=== PATIENT | female | born 1945 | race Caucasian/White ===

== ENCOUNTER 2019-06-17 12:36 | Inpatient (IN) ==
[2019-06-17 13:45] LABS: Bilirubin,Urine Negative (Negative); Blood,Urine Negative (Negative); Color,Urine Yellow (Yellow); Glucose,Urine (UA) Normal (Normal); Ketones,Urine Negative (Negative); Leukocyte Esterase,Urine Moderate (Negative); Nitrite,Urine Negative (Negative); Protein,Urine 30 mg/dL (Neg-Trace); Urobilinogen,Urine Normal (Normal)
[2019-06-17 13:47] LABS: Basophils % 0.6 %; Eosinophils # 0.2 K/mcL (0.0-0.6); Eosinophils % 3.6 %; Hematocrit 30.1 % (35.3-44.9); Immature Granulocytes % 0.8 % (0-4); Lymphocytes # 0.7 K/mcL (0.6-4.6); Mean Corpuscular HGB Conc 29.9 g/dL (31.6-35.5); Mean Corpuscular Hemoglobin 31.6 pg (28.0-33.3); Mean Corpuscular Volume 105.6 fL (83.0-100.0); Mean Platelet Volume 11.5 fL (9.4-12.4); Monocytes # 0.5 K/mcL (0.0-1.3); Monocytes % 10.1 %; Neutrophils # 3.5 K/mcL (1.6-8.9); Platelet Count 113 K/mcL (140-400); Red Blood Count 2.85 M/mcL (3.82-4.97); Red Cell Distribution Width 16.6 % (11.5-14.5); Segmented Neutrophils % 69.9 %; White Blood Count 4.9 K/mcL (4.3-11.1)
[2019-06-17 13:48] LABS: Bacteria,Urine Few per hpf (None-Few); Hyaline Casts,Urine None Seen per lpf (None-Few); Squamous Epithelial Cell,Urine Many per lpf (None-Few)
[2019-06-17 13:50] LABS: INR 1.1; Prothrombin Time 12.9 Seconds (9.4-12.1)
[2019-06-17 14:05] LABS: Alanine Aminotransferase 33 Units/L (7-52); Albumin 3.9 g/dL (3.5-5.7); Albumin/Globulin Ratio 1.4 (1.1-2.2); Alkaline Phosphatase 71 Units/L (34-104); Aspartate Amino Transferase 70 Units/L (13-39); BUN/Creatinine Ratio 22 (6-26); Bilirubin,Direct 0.3 mg/dL (0.0-0.2); Bilirubin,Indirect 0.4 mg/dL (0.0-1.2); Bilirubin,Total 0.7 mg/dL (0.3-1.0); Blood Urea Nitrogen 47 mg/dL (8-23); Calcium 8.9 mg/dL (8.6-10.3); Carbon Dioxide 24 mEq/L (23-29); Chloride 112 mEq/L (98-107); Globulin 2.7 g/dL (2.4-3.5); Glucose 86 mg/dL (70-105); Osmolality,Calculated 302 (280-300); Potassium 5.1 mEq/L (3.5-5.1); Sodium 140 mEq/L (136-145); Total Protein 6.6 g/dL (6.4-8.9); Troponin I < 0.03 ng/mL (< 0.04); eGFR For African Americans 28 (> 60); eGFR For Non-African Americans 23 (> 60)
[2019-06-17 14:13] LABS: Clarity,Urine Hazy (Clear)
[2019-06-17] MEDS ORDERED: cefTRIAXone 1,000 MG in Water for inj. (sterile) 10 ML IVP ONE (14:48)
[2019-06-17] MEDS ORDERED: *HR* FentaNYL (PF) 100 MCG/2 ML VIAL IVP ONE (15:19)
[2019-06-17] MEDS ORDERED: Naloxone 0.4 MG/ML INJ IVP PRN (16:36)
[2019-06-17 17:52] LABS: Basophils % 0.5 %; Eosinophils # 0.2 K/mcL (0.0-0.6); Eosinophils % 4.5 %; Hematocrit 27.7 % (35.3-44.9); Hemoglobin 8.3 g/dL (11.5-15.4); Immature Granulocytes % 0.2 % (0-4); Lymphocytes # 0.7 K/mcL (0.6-4.6); Lymphocytes % 18.2 %; Mean Corpuscular Hemoglobin 31.3 pg (28.0-33.3); Mean Corpuscular Volume 104.5 fL (83.0-100.0); Mean Platelet Volume 11.6 fL (9.4-12.4); Monocytes # 0.4 K/mcL (0.0-1.3); Monocytes % 10.7 %; Neutrophils # 2.7 K/mcL (1.6-8.9); Platelet Count 104 K/mcL (140-400); Red Blood Count 2.65 M/mcL (3.82-4.97); Red Cell Distribution Width 16.7 % (11.5-14.5); Segmented Neutrophils % 65.9 %
[2019-06-17] MEDS ORDERED: Furosemide 40 MG TABLET PO ONE (18:13)
[2019-06-18] MEDS ORDERED: Acetaminophen 325 MG TABLET PO PRN (01:45)
[2019-06-18 03:41] LABS: Calcium 8.6 mg/dL (8.6-10.3); Potassium 5.2 mEq/L (3.5-5.1)
[2019-06-18 03:54] LABS: Thyroid Stimulating Hormone 2.029 mcIU/mL (0.340-5.600)
[2019-06-18 04:04] LABS: Folate 9.7 ng/mL (3.0-16.0)
[2019-06-18] MEDS: *HR* Heparin 5,000 UNIT/ML VIAL SQ SCH ×2 (06:07→17:58)
[2019-06-18] MEDS ORDERED: Cyanocobalamin (B-12) 1,000 MCG/ML VIAL SQ ONE (07:17)
[2019-06-18] MEDS ORDERED: Perflutren Lipid Microsphere 1.3 ML in 0.9 % Sodium Chloride 8.7 ML IVP ONE (07:22)
[2019-06-18 07:32] LABS: Magnesium 2.1 mg/dL (1.6-2.6)
[2019-06-18] MEDS ORDERED: Furosemide 40 MG/4 ML VIAL IVP SCH (09:00)
[2019-06-18] MEDS: Aspirin Enteric Coated 81 MG Tablet PO SCH (10:35)
[2019-06-18] MEDS: Cyanocobalamin (B-12) 1,000 MCG TABLET PO SCH (10:35)
[2019-06-18] MEDS: cefTRIAXone 1,000 MG in Water for inj. (sterile) 10 ML IVP SCH (10:42)
[2019-06-18] MEDS: *HR* OxyCODONE/APAP 10/325 TABLET PO PRN (14:59)
[2019-06-18] MEDS: Melatonin 3 MG TABLET PO SCH (22:03)
[2019-06-19 02:01] LABS: Calcium 8.7 mg/dL (8.6-10.3); Potassium 4.4 mEq/L (3.5-5.1)
[2019-06-19] MEDS: *HR* Heparin 5,000 UNIT/ML VIAL SQ SCH ×2 (06:10→16:31)
[2019-06-19] MEDS: Aspirin Enteric Coated 81 MG Tablet PO SCH (08:37)
[2019-06-19] MEDS: Cyanocobalamin (B-12) 1,000 MCG TABLET PO SCH (08:37)
[2019-06-19] MEDS: cefTRIAXone 1,000 MG in Water for inj. (sterile) 10 ML IVP SCH (08:37)
[2019-06-19] MEDS: Furosemide 40 MG/4 ML VIAL IVP SCH ×2 (08:37→16:27)
[2019-06-19] MEDS: *HR* OxyCODONE/APAP 10/325 TABLET PO PRN ×3 (08:45→20:37)
[2019-06-19] MEDS: Melatonin 3 MG TABLET PO SCH (20:34)
[2019-06-20 03:53] LABS: Mean Corpuscular Volume 100.4 fL (83.0-100.0); Red Cell Distribution Width 16.5 % (11.5-14.5)
[2019-06-20 03:55] LABS: Hematocrit 26.1 % (35.3-44.9); Hemoglobin 8.1 g/dL (11.5-15.4); Immature Platelets 3.2 % (1.1-6.1); Mean Corpuscular Hemoglobin 31.2 pg (28.0-33.3); Mean Platelet Volume 11.5 fL (9.4-12.4); Red Blood Count 2.6 M/mcL (3.82-4.97)
[2019-06-20 04:06] LABS: Calcium 8.9 mg/dL (8.6-10.3); Potassium 4.8 mEq/L (3.5-5.1)
[2019-06-20] MEDS: *HR* Heparin 5,000 UNIT/ML VIAL SQ SCH ×2 (06:07→16:58)
[2019-06-20] MEDS ORDERED: Acetaminophen 325 MG TABLET PO PRN (07:41)
[2019-06-20] MEDS: cefTRIAXone 1,000 MG in Water for inj. (sterile) 10 ML IVP SCH (08:04)
[2019-06-20] MEDS: Cyanocobalamin (B-12) 1,000 MCG TABLET PO SCH (08:05)
[2019-06-20] MEDS: Aspirin Enteric Coated 81 MG Tablet PO SCH (08:05)
[2019-06-20] MEDS: *HR* OxyCODONE/APAP 10/325 TABLET PO PRN ×2 (08:08→19:30)
[2019-06-20] MEDS: Melatonin 3 MG TABLET PO SCH (20:38)
[2019-06-21 02:56] LABS: Red Cell Distribution Width 16.2 % (11.5-14.5)
[2019-06-21 02:58] LABS: Basophils % 0.6 %; Eosinophils # 0.2 K/mcL (0.0-0.6); Eosinophils % 4.2 %; Hematocrit 26.4 % (35.3-44.9); Hemoglobin 8.3 g/dL (11.5-15.4); Immature Granulocytes % 0.3 % (0-4); Immature Platelets 4.1 % (1.1-6.1); Lymphocytes # 0.7 K/mcL (0.6-4.6); Lymphocytes % 20.6 %; Mean Corpuscular HGB Conc 31.4 g/dL (31.6-35.5); Mean Corpuscular Hemoglobin 31.6 pg (28.0-33.3); Mean Corpuscular Volume 100.4 fL (83.0-100.0); Mean Platelet Volume 11.5 fL (9.4-12.4); Monocytes # 0.4 K/mcL (0.0-1.3); Monocytes % 9.9 %; Neutrophils # 2.3 K/mcL (1.6-8.9); Red Blood Count 2.63 M/mcL (3.82-4.97); Segmented Neutrophils % 64.4 %; White Blood Count 3.5 K/mcL (4.3-11.1)
[2019-06-21 03:00] LABS: Calcium 9.2 mg/dL (8.6-10.3); Potassium 5.1 mEq/L (3.5-5.1)
[2019-06-21 03:04] LABS: Platelet Count 91 K/mcL (140-400)
[2019-06-21] MEDS: *HR* Heparin 5,000 UNIT/ML VIAL SQ SCH ×2 (05:40→16:48)
[2019-06-21] MEDS: Aspirin Enteric Coated 81 MG Tablet PO SCH (08:09)
[2019-06-21] MEDS: Cyanocobalamin (B-12) 1,000 MCG TABLET PO SCH (08:09)
[2019-06-21] MEDS ORDERED: Furosemide 40 MG/4 ML VIAL IVP ONE (13:44)
[2019-06-21] MEDS: *HR* OxyCODONE/APAP 10/325 TABLET PO PRN ×2 (14:06→20:37)
[2019-06-21] MEDS: Melatonin 3 MG TABLET PO SCH (20:38)
[2019-06-21 21:29] LABS: Protein/Creatinine Ratio,Urine 0.2 mg/mg (0.00-0.20)
[2019-06-21 21:33] LABS: Bilirubin,Urine Negative (Negative); Blood,Urine Negative (Negative); Clarity,Urine Clear (Clear); Color,Urine Yellow (Yellow); Glucose,Urine (UA) Normal (Normal); Ketones,Urine Negative (Negative); Leukocyte Esterase,Urine Negative (Negative); Nitrite,Urine Negative (Negative); Protein,Urine Trace mg/dL (Neg-Trace); Specific Gravity,Urine 1.019 (1.010-1.025); Urobilinogen,Urine Normal (Normal)
[2019-06-22 05:04] LABS: Immature Granulocytes % 0.3 % (0-4); Mean Corpuscular Volume 99.6 fL (83.0-100.0)
[2019-06-22 05:06] LABS: Basophils % 0.3 %; Eosinophils # 0.1 K/mcL (0.0-0.6); Eosinophils % 4.9 %; Hematocrit 25.6 % (35.3-44.9); Immature Platelets 2.9 % (1.1-6.1); Mean Corpuscular HGB Conc 31.3 g/dL (31.6-35.5); Mean Corpuscular Hemoglobin 31.1 pg (28.0-33.3); Monocytes # 0.3 K/mcL (0.0-1.3); Monocytes % 8.7 %; Neutrophils # 1.5 K/mcL (1.6-8.9); Red Blood Count 2.57 M/mcL (3.82-4.97); Segmented Neutrophils % 52.8 %; White Blood Count 2.9 K/mcL (4.3-11.1)
[2019-06-22 05:09] LABS: Platelet Count 78 K/mcL (140-400)
[2019-06-22 05:22] LABS: Uric Acid 8.4 mg/dL (2.3-7.6)
[2019-06-22 05:23] LABS: Calcium 8.9 mg/dL (8.6-10.3); Potassium 4.3 mEq/L (3.5-5.1)
[2019-06-22] MEDS: *HR* Heparin 5,000 UNIT/ML VIAL SQ SCH ×2 (05:58→16:16)
[2019-06-22] MEDS: Aspirin Enteric Coated 81 MG Tablet PO SCH (07:27)
[2019-06-22] MEDS: Cyanocobalamin (B-12) 1,000 MCG TABLET PO SCH (07:27)
[2019-06-22] MEDS: *HR* OxyCODONE/APAP 10/325 TABLET PO PRN ×2 (10:19→20:37)
[2019-06-22] MEDS: Melatonin 3 MG TABLET PO SCH (20:37)
[2019-06-23] MEDS: *HR* Heparin 5,000 UNIT/ML VIAL SQ SCH (05:44)
[2019-06-23 07:00] LABS: Potassium 4.3 mEq/L (3.5-5.1)
[2019-06-23 07:27] VITALS: BP 108/61
[2019-06-23] MEDS: Cyanocobalamin (B-12) 1,000 MCG TABLET PO SCH (08:31)
[2019-06-23] MEDS: Aspirin Enteric Coated 81 MG Tablet PO SCH (08:31)
== END 2019-06-23 10:49 | disposition home or self-care (01) | DRG 291 ==
LOC: 2ANU 12:36 → EMEROOARM 12:36 → SUATTDRO 16:02 → 2ANU 17:06 → SUATTDRO 19:57
PROVIDERS: ADMIT Internal Medicine; ATTEND Student in an Organized Health Care Education/Training Program

== ENCOUNTER 2019-07-05 19:19 | Observation (INO) ==
--- NOTE | 2019-07-05 21:18 | Emergency Department Note ---
Disposition Clinical Impression: Acute renal insufficiency CHF exacerbation Qualifiers: Heart failure type: unspecified Qualified Code(s): I50.9 - Heart failure, unspecified Disposition: Admitted As Inpatient Condition: Good Time of Disposition: 00:30 General Adult HPI - General Chief complaint: ED Shortness of Breath/Dyspnea Stated complaint: Kidney problems/CHF/SOB Time Seen by Provider: 07/05/19 21:07 Nursing Notes Reviewed: Yes Vital Signs Reviewed: Yes - History of Present Illness HPI Narrative: 73-year-old female presents emergency department with concern for Jose kidney issues. Patient states that she has been gaining about 6 pounds over the last week, has had increased lower extremity swelling as well as abdominal swelling. Reports that she is getting more tired upon ambulating. States that she just feels out of breath. Patient has history of type 2 diabetes mellitus as well as coronary artery disease with 2 stents. She denies any recent chest pain. Repo rts that she used to take Lasix, but is no longer taking it as she developed renal failure secondary to administration of Lasix in the hospital. Pain Scale: 0 - Related Data Home Medications Medication Instructions Recorded Confirmed Lisinopril [Zestril] 20 mg PO DAILY 03/01/16 07/05/19 Escitalopram [Lexapro] 20 mg PO DAILY 10/29/17 07/05/19 Fenofibrate Nanocrystallized 160 mg PO DAILY 10/29/17 07/05/19 [Triglide] Fluticasone Propionate Nasal 1 spr NS DAILY 10/29/17 07/05/19 [Flonase] Folic Acid 0.8 mg PO DAILY 10/29/17 07/05/19 Levothyroxine Sodium 125 mcg PO 0630 10/29/17 07/05/19 Lovastatin 40 mg PO DAILY 10/29/17 07/05/19 Omeprazole [PriLOSEC] 40 mg PO DAILY 10/29/17 07/05/19 Melatonin 10 mg PO HS 06/17/19 07/05/19 OxyCODONE/APAP 10/325 [Percocet 1 tab PO Q6HR PRN 06/17/19 07/05/19 10/325 MG] Ascorbic Acid [Vitamin C] 500 mg PO DAILY 06/18/19 07/05/19 Aspirin [Adult Aspirin Regimen] 81 mg PO DAILY 06/18/19 07/05/19 Chlorthalidone 25 mg PO DAILY 06/18/19 07/05/19 Cholecalciferol (Vitamin D3) 2,000 unit PO DAILY 06/18/19 07/05/19 [Vitamin D3] Ferrous Sulfate 650 mg PO DAILY 06/18/19 07/05/19 Pioglitazone HCl 30 mg PO DAILY 06/18/19 07/05/19 Previous Rx's Medication Instructions Recorded Aspirin Enteric Coated [Aspirin EC] 81 mg PO DAILY tablet. 06/23/19 Allergies Allergy/AdvReac Type Severity Reaction Status Date / Time gabapentin Allergy See Verified 07/05/19 21:17 Comments budesonide [From Symbicort] AdvReac Blurry Verified 07/05/19 21:17 Vision Formoterol [From Symbicort] AdvReac Blurry Verified 07/05/19 21:17 Vision Sulfa (Sulfonamide AdvReac Blister Verified 07/05/19 21:17 Antibiotics) All systems ED: reviewed and negative except as stated. Review of Systems: As Per HPI Constitutional: Denies: fever Cardiovascular: Denies: chest pain Respiratory: Reports: dyspnea. Denies: cough Gastrointestinal: Denies: abdominal pain, nausea, vomiting Genitourinary: Denies: urgency, dysuria, frequency Musculoskeletal: Denies: back pain Neurological: Denies: headache Endocrine: Denies: fatigue Past Medical History - Past Medical History Attestation: Yes The following information was validated with the patient. Medical history: Reports: CHF, coronary artery disease, diabetes, hypertension, renal disease, thyroid disease Surgical history: Reports: cataract, hysterectomy, orthopedic, other Psychiatric history: Reports: anxiety, depression - Social History Smoking Status: Never smoker Smokeless Tobacco Status: No Alcohol use: Reports: none Drug use: Reports: none Physical Exam - General Limitations: no limitations General appearance: alert, in no apparent distress - Head Head exam: normocephalic - Eye Eye exam: Present: EOMI - ENT ENT exam: mucous membranes moist - Neck Neck exam: Present: trachea midline - Chest Chest inspection: Present: symmetric chest wall rise - Respiratory Respiratory exam: Present: normal lung sounds bilaterally. Absent: respiratory distress, accessory muscle use - Cardiovascular Cardiovascular exam: Present: regular rate, normal rhythm, normal heart sounds - Abdominal Exam Abdominal exam: Present: soft, Non-Tender. Absent: distention, guarding, rebound, rigidity - Extremities Exam Extremities exam: Present: normal capillary refill - Back Exam Back exam: Present: full ROM - Neurological Exam Neurological exam: Present: alert, oriented X3 - Psychiatric Psychiatric exam: Present: normal affect, normal mood - Skin Skin exam: Present: warm, dry, intact, normal color. Absent: rash Course Vital Signs Temperature 98.0 F 07/05/19 20:13 Pulse Rate 73 07/05/19 20:13 Respiratory Rate 18 07/05/19 20:13 Blood Pressure 126/70 07/05/19 20:13 O2 Sat by Pulse Oximetry 100 07/05/19 20:13 Temperature 98.0 F 07/05/19 20:13 Pulse Rate 69 07/05/19 23:32 Respiratory Rate 20 07/05/19 23:32 Blood Pressure 135/68 07/05/19 23:32 O2 Sat by Pulse Oximetry 96 07/05/19 23:32 Oxygen Delivery Oxygen Delivery Room Air Medical Decision Making - MDM Narrative Medical decision making narrative: 73-year-old female presents emergency Department concern for fluid overload. Patient gets dyspneic in conversation. Pt. is hemodynamically stable. Patient clinically edematous, with pitting edema and distended abdomen. Chest x-ray did not reveal any acute abnormality. BNP is elevated. Patient's kidney function slightly worsened from previous. Family was under the impression that the loft rigger, Dr. Adams would come to the emergency department to see the patient. I did speak with her on the phone to gather recommendations and she stated to administer 40 mg of Lasix IV. Agreed to follow as a consult. Patient admitted to Dr. Caballero. She was not in any acute distress at that time. Chest X-Ray 07/05/19 21:17 IMPRESSION: No acute abnormality detected. D/ / Anderson Maddox MD / Anderson Maddox MD Interpreting Provider: Anderson Maddox MD - Lab Data Result diagrams: 07/05/19 21:45 07/05/19 21:45 Lab Results 07/05/19 07/05/19 07/05/19 Range/Units 21:24 21:45 21:45 WBC 4.2 L (4.3-11.1) K/mcL RBC 2.83 L (3.82-4.97) M/mcL Hgb 9.1 L (11.5-15.4) g/dL Hct 28.8 L (35.3-44.9) % MCV 101.8 H (83.0-100.0) fL MCH 32.2 (28.0-33.3) pg MCHC 31.6 (31.6-35.5) g/dL RDW 15.5 H (11.5-14.5) % Plt Count 111 L (140-400) K/mcL MPV 10.8 (9.4-12.4) fL Immature Gran % 0.5 (0-4) % Seg Neutrophils % 68.6 % Lymphocytes % 17.2 % Monocytes % 9.9 % Eosinophils % 3.1 % Basophils % 0.7 % Neutrophils # 2.9 (1.6-8.9) K/mcL Lymphocytes # 0.7 (0.6-4.6) K/mcL Monocytes # 0.4 (0.0-1.3) K/mcL Eosinophils # 0.1 (0.0-0.6) K/mcL Basophils # 0.0 (0.0-0.2) K/mcL Sodium 138 (136-145) mEq/L Potassium 5.3 H (3.5-5.1) mEq/L Chloride 110 H (98-107) mEq/L Carbon Dioxide 20 L (23-29) mEq/L BUN 58 H (8-23) mg/dL Creatinine 2.42 H (0.60-1.20) mg/dL Est GFR ( Amer) 24 L (> 60) Est GFR (Non-Af Amer) 20 L (> 60) BUN/Creatinine Ratio 24 (6-26) Glucose 123 H (70-105) mg/dL Calculated Osmolality 304 H (280-300) Calcium 9.1 (8.6-10.3) mg/dL Total Bilirubin 0.6 (0.3-1.0) mg/dL AST 46 H (13-39) Units/L ALT 27 (7-52) Units/L Alkaline Phosphatase 80 (34-104) Units/L Troponin I < 0.03 (< 0.04) ng/mL B-Natriuretic Peptide (Less than 100) pg/mL Serum Total Protein 6.8 (6.4-8.9) g/dL Albumin 4.1 (3.5-5.7) g/dL Globulin 2.7 (2.4-3.5) g/dL Albumin/Globulin Ratio 1.5 (1.1-2.2) Urine Color Yellow (Yellow) Urine Clarity Clear (Clear) Urine pH 5.0 (5.0-8.0) pH Units Ur Specific [place] 1.019 (1.010-1.025) Urine Protein 30 H (Neg-Trace) mg/dL Urine Glucose (UA) Normal (Normal) mg/dL Urine Ketones Negative (Negative) mg/dL Urine Blood Negative (Negative) Urine Nitrite Negative (Negative) Urine Bilirubin Negative (Negative) Urine Urobilinogen Normal (Normal) mg/dL Ur Leukocyte Esterase Negative (Negative) Urine Microscopic RBC 0-3 (0-3) per hpf Urine Microscopic WBC 0-3 (0-3) per hpf Ur Squamous Epith Cells Many H (None-Few) per lpf Urine Bacteria None Seen (None-Few) per hpf Hyaline Casts None Seen (None-Few) per lpf Ur Culture Indicated? NO (NO) 07/05/19 Range/Units 21:45 WBC (4.3-11.1) K/mcL RBC (3.82-4.97) M/mcL Hgb (11.5-15.4) g/dL Hct (35.3-44.9) % MCV (83.0-100.0) fL MCH (28.0-33.3) pg MCHC (31.6-35.5) g/dL RDW (11.5-14.5) % Plt Count (140-400) K/mcL MPV (9.4-12.4) fL Immature Gran % (0-4) % Seg Neutrophils % % Lymphocytes % % Monocytes % % Eosinophils % % Basophils % % Neutrophils # (1.6-8.9) K/mcL Lymphocytes # (0.6-4.6) K/mcL Monocytes # (0.0-1.3) K/mcL Eosinophils # (0.0-0.6) K/mcL Basophils # (0.0-0.2) K/mcL Sodium (136-145) mEq/L Potassium (3.5-5.1) mEq/L Chloride (98-107) mEq/L Carbon Dioxide (23-29) mEq/L BUN (8-23) mg/dL Creatinine (0.60-1.20) mg/dL Est GFR ( Amer) (> 60) Est GFR (Non-Af Amer) (> 60) BUN/Creatinine Ratio (6-26) Glucose (70-105) mg/dL Calculated Osmolality (280-300) Calcium (8.6-10.3) mg/dL Total Bilirubin (0.3-1.0) mg/dL AST (13-39) Units/L ALT (7-52) Units/L Alkaline Phosphatase (34-104) Units/L Troponin I (< 0.04) ng/mL B-Natriuretic Peptide 413 H (Less than 100) pg/mL Serum Total Protein (6.4-8.9) g/dL Albumin (3.5-5.7) g/dL Globulin (2.4-3.5) g/dL Albumin/Globulin Ratio (1.1-2.2) Urine Color (Yellow) Urine Clarity (Clear) Urine pH (5.0-8.0) pH Units Ur Specific [place] (1.010-1.025) Urine Protein (Neg-Trace) mg/dL Urine Glucose (UA) (Normal) mg/dL Urine Ketones (Negative) mg/dL Urine Blood (Negative) Urine Nitrite (Negative) Urine Bilirubin (Negative) Urine Urobilinogen (Normal) mg/dL Ur Leukocyte Esterase (Negative) Urine Microscopic RBC (0-3) per hpf Urine Microscopic WBC (0-3) per hpf Ur Squamous Epith Cells (None-Few) per lpf Urine Bacteria (None-Few) per hpf Hyaline Casts (None-Few) per lpf Ur Culture Indicated? (NO) - EKG Data EKG #1 EKG attestation: Yes I reviewed and interpreted this EKG. EKG results narrative: 21:22 Heart rate 68 bpm, IA interval 181 ms, QRS spiritism 132 ms, QT 420 ms, QTC 447 msec Left bundle branch block with no ischemic changes.
[2019-07-05 21:53] LABS: Basophils % 0.7 %; Eosinophils # 0.1 K/mcL (0.0-0.6); Eosinophils % 3.1 %; Hematocrit 28.8 % (35.3-44.9); Hemoglobin 9.1 g/dL (11.5-15.4); Immature Granulocytes % 0.5 % (0-4); Lymphocytes # 0.7 K/mcL (0.6-4.6); Lymphocytes % 17.2 %; Mean Corpuscular HGB Conc 31.6 g/dL (31.6-35.5); Mean Corpuscular Hemoglobin 32.2 pg (28.0-33.3); Mean Corpuscular Volume 101.8 fL (83.0-100.0); Mean Platelet Volume 10.8 fL (9.4-12.4); Monocytes # 0.4 K/mcL (0.0-1.3); Monocytes % 9.9 %; Neutrophils # 2.9 K/mcL (1.6-8.9); Platelet Count 111 K/mcL (140-400); Red Blood Count 2.83 M/mcL (3.82-4.97); Red Cell Distribution Width 15.5 % (11.5-14.5); Segmented Neutrophils % 68.6 %; White Blood Count 4.2 K/mcL (4.3-11.1)
[2019-07-05 22:04] LABS: Bilirubin,Urine Negative (Negative); Blood,Urine Negative (Negative); Clarity,Urine Clear (Clear); Color,Urine Yellow (Yellow); Glucose,Urine (UA) Normal (Normal); Ketones,Urine Negative (Negative); Leukocyte Esterase,Urine Negative (Negative); Nitrite,Urine Negative (Negative); Protein,Urine 30 mg/dL (Neg-Trace); Specific Gravity,Urine 1.019 (1.010-1.025); Urobilinogen,Urine Normal (Normal)
[2019-07-05 22:07] LABS: Bacteria,Urine None Seen per hpf (None-Few); Hyaline Casts,Urine None Seen per lpf (None-Few); RBC,Urine 0-3 per hpf (0-3); Squamous Epithelial Cell,Urine Many per lpf (None-Few); WBC,Urine 0-3 per hpf (0-3)
[2019-07-05 22:15] LABS: Alanine Aminotransferase 27 Units/L (7-52); Albumin 4.1 g/dL (3.5-5.7); Albumin/Globulin Ratio 1.5 (1.1-2.2); Alkaline Phosphatase 80 Units/L (34-104); Aspartate Amino Transferase 46 Units/L (13-39); BUN/Creatinine Ratio 24 (6-26); Bilirubin,Total 0.6 mg/dL (0.3-1.0); Blood Urea Nitrogen 58 mg/dL (8-23); Calcium 9.1 mg/dL (8.6-10.3); Carbon Dioxide 20 mEq/L (23-29); Chloride 110 mEq/L (98-107); Globulin 2.7 g/dL (2.4-3.5); Glucose 123 mg/dL (70-105); Osmolality,Calculated 304 (280-300); Potassium 5.3 mEq/L (3.5-5.1); Sodium 138 mEq/L (136-145); Total Protein 6.8 g/dL (6.4-8.9); eGFR For African Americans 24 (> 60); eGFR For Non-African Americans 20 (> 60)
[2019-07-05 22:16] LABS: Troponin I < 0.03 ng/mL (< 0.04)
--- NOTE | 2019-07-05 22:16 | Emergency Department Note ---
Disposition Clinical Impression: Acute renal insufficiency CHF exacerbation Qualifiers: Heart failure type: unspecified Qualified Code(s): I50.9 - Heart failure, unspecified Disposition: Admitted As Inpatient Condition: Good Time of Disposition: 00:30 General Adult HPI - General Chief complaint: ED Shortness of Breath/Dyspnea Stated complaint: Kidney problems/CHF/SOB Time Seen by Provider: 07/05/19 21:07 Nursing Notes Reviewed: Yes Vital Signs Reviewed: Yes - History of Present Illness Pain Scale: 0 - Related Data Home Medications Medication Instructions Recorded Confirmed Lisinopril [Zestril] 20 mg PO DAILY 03/01/16 07/05/19 Escitalopram [Lexapro] 20 mg PO DAILY 10/29/17 07/05/19 Fenofibrate Nanocrystallized 160 mg PO DAILY 10/29/17 07/05/19 [Triglide] Fluticasone Propionate Nasal 1 spr NS DAILY 10/29/17 07/05/19 [Flonase] Folic Acid 0.8 mg PO DAILY 10/29/17 07/05/19 Levothyroxine Sodium 125 mcg PO 0630 10/29/17 07/05/19 Lovastatin 40 mg PO DAILY 10/29/17 07/05/19 Omeprazole [PriLOSEC] 40 mg PO DAILY 10/29/17 07/05/19 Melatonin 10 mg PO HS 06/17/19 07/05/19 OxyCODONE/APAP 10/325 [Percocet 1 tab PO Q6HR PRN 06/17/19 07/05/19 10/325 MG] Ascorbic Acid [Vitamin C] 500 mg PO DAILY 06/18/19 07/05/19 Aspirin [Adult Aspirin Regimen] 81 mg PO DAILY 06/18/19 07/05/19 Chlorthalidone 25 mg PO DAILY 06/18/19 07/05/19 Cholecalciferol (Vitamin D3) 2,000 unit PO DAILY 06/18/19 07/05/19 [Vitamin D3] Ferrous Sulfate 650 mg PO DAILY 06/18/19 07/05/19 Pioglitazone HCl 30 mg PO DAILY 06/18/19 07/05/19 Previous Rx's Medication Instructions Recorded Aspirin Enteric Coated [Aspirin EC] 81 mg PO DAILY tablet. 06/23/19 Allergies Allergy/AdvReac Type Severity Reaction Status Date / Time gabapentin Allergy See Verified 08/27/19 21:17 Comments budesonide [From Symbicort] AdvReac Blurry Verified 07/05/19 21:17 Vision Formoterol [From Symbicort] AdvReac Blurry Verified 07/05/19 21:17 Vision Sulfa (Sulfonamide AdvReac Blister Verified 07/05/19 21:17 Antibiotics) Past Medical History - Past Medical History Medical history: Reports: CHF, coronary artery disease, diabetes, hypertension, renal disease, thyroid disease Surgical history: Reports: cataract, hysterectomy, orthopedic, other Psychiatric history: Reports: anxiety, depression - Social History Smoking Status: Never smoker Smokeless Tobacco Status: No Alcohol use: Reports: none Drug use: Reports: none Course Vital Signs Temperature 98.0 F 07/05/19 20:13 Pulse Rate 73 07/05/19 20:13 Respiratory Rate 18 07/05/19 20:13 Blood Pressure 126/70 07/05/19 20:13 O2 Sat by Pulse Oximetry 100 07/05/19 20:13 Temperature 98.0 F 07/06/19 00:56 Pulse Rate 69 07/06/19 00:56 Respiratory Rate 20 07/06/19 00:56 Blood Pressure 135/68 07/06/19 00:56 O2 Sat by Pulse Oximetry 96 07/06/19 00:56 Oxygen Delivery Oxygen Delivery Room Air Medical Decision Making - Medical Records Medical records reviewed: Yes I reviewed the patient's medical records. - Lab Data Lab results reviewed: Yes I reviewed the patient's lab results. Result diagrams: 07/05/19 21:45 07/05/19 21:45 Lab Results 07/05/19 07/05/19 07/05/19 Range/Units 21:24 21:45 21:45 WBC 4.2 L (4.3-11.1) K/mcL RBC 2.83 L (3.82-4.97) M/mcL Hgb 9.1 L (11.5-15.4) g/dL Hct 28.8 L (35.3-44.9) % MCV 101.8 H (83.0-100.0) fL MCH 32.2 (28.0-33.3) pg MCHC 31.6 (31.6-35.5) g/dL RDW 15.5 H (11.5-14.5) % Plt Count 111 L (140-400) K/mcL MPV 10.8 (9.4-12.4) fL Immature Gran % 0.5 (0-4) % Seg Neutrophils % 68.6 % Lymphocytes % 17.2 % Monocytes % 9.9 % Eosinophils % 3.1 % Basophils % 0.7 % Neutrophils # 2.9 (1.6-8.9) K/mcL Lymphocytes # 0.7 (0.6-4.6) K/mcL Monocytes # 0.4 (0.0-1.3) K/mcL Eosinophils # 0.1 (0.0-0.6) K/mcL Basophils # 0.0 (0.0-0.2) K/mcL Sodium 138 (136-145) mEq/L Potassium 5.3 H (3.5-5.1) mEq/L Chloride 110 H (98-107) mEq/L Carbon Dioxide 20 L (23-29) mEq/L BUN 58 H (8-23) mg/dL Creatinine 2.42 H (0.60-1.20) mg/dL Est GFR ( Amer) 24 L (> 60) Est GFR (Non-Af Amer) 20 L (> 60) BUN/Creatinine Ratio 24 (6-26) Glucose 123 H (70-105) mg/dL Calculated Osmolality 304 H (280-300) Calcium 9.1 (8.6-10.3) mg/dL Total Bilirubin 0.6 (0.3-1.0) mg/dL AST 46 H (13-39) Units/L ALT 27 (7-52) Units/L Alkaline Phosphatase 80 (34-104) Units/L Troponin I < 0.03 (< 0.04) ng/mL B-Natriuretic Peptide (Less than 100) pg/mL Serum Total Protein 6.8 (6.4-8.9) g/dL Albumin 4.1 (3.5-5.7) g/dL Globulin 2.7 (2.4-3.5) g/dL Albumin/Globulin Ratio 1.5 (1.1-2.2) Urine Color Yellow (Yellow) Urine Clarity Clear (Clear) Urine pH 5.0 (5.0-8.0) pH Units Ur Specific [place] 1.019 (1.010-1.025) Urine Protein 30 H (Neg-Trace) mg/dL Urine Glucose (UA) Normal (Normal) mg/dL Urine Ketones Negative (Negative) mg/dL Urine Blood Negative (Negative) Urine Nitrite Negative (Negative) Urine Bilirubin Negative (Negative) Urine Urobilinogen Normal (Normal) mg/dL Ur Leukocyte Esterase Negative (Negative) Urine Microscopic RBC 0-3 (0-3) per hpf Urine Microscopic WBC 0-3 (0-3) per hpf Ur Squamous Epith Cells Many H (None-Few) per lpf Urine Bacteria None Seen (None-Few) per hpf Hyaline Casts None Seen (None-Few) per lpf Ur Culture Indicated? NO (NO) 07/05/19 Range/Units 21:45 WBC (4.3-11.1) K/mcL RBC (3.82-4.97) M/mcL Hgb (11.5-15.4) g/dL Hct (35.3-44.9) % MCV (83.0-100.0) fL MCH (28.0-33.3) pg MCHC (31.6-35.5) g/dL RDW (11.5-14.5) % Plt Count (140-400) K/mcL MPV (9.4-12.4) fL Immature Gran % (0-4) % Seg Neutrophils % % Lymphocytes % % Monocytes % % Eosinophils % % Basophils % % Neutrophils # (1.6-8.9) K/mcL Lymphocytes # (0.6-4.6) K/mcL Monocytes # (0.0-1.3) K/mcL Eosinophils # (0.0-0.6) K/mcL Basophils # (0.0-0.2) K/mcL Sodium (136-145) mEq/L Potassium (3.5-5.1) mEq/L Chloride (98-107) mEq/L Carbon Dioxide (23-29) mEq/L BUN (8-23) mg/dL Creatinine (0.60-1.20) mg/dL Est GFR ( Amer) (> 60) Est GFR (Non-Af Amer) (> 60) BUN/Creatinine Ratio (6-26) Glucose (70-105) mg/dL Calculated Osmolality (280-300) Calcium (8.6-10.3) mg/dL Total Bilirubin (0.3-1.0) mg/dL AST (13-39) Units/L ALT (7-52) Units/L Alkaline Phosphatase (34-104) Units/L Troponin I (< 0.04) ng/mL B-Natriuretic Peptide 413 H (Less than 100) pg/mL Serum Total Protein (6.4-8.9) g/dL Albumin (3.5-5.7) g/dL Globulin (2.4-3.5) g/dL Albumin/Globulin Ratio (1.1-2.2) Urine Color (Yellow) Urine Clarity (Clear) Urine pH (5.0-8.0) pH Units Ur Specific [place] (1.010-1.025) Urine Protein (Neg-Trace) mg/dL Urine Glucose (UA) (Normal) mg/dL Urine Ketones (Negative) mg/dL Urine Blood (Negative) Urine Nitrite (Negative) Urine Bilirubin (Negative) Urine Urobilinogen (Normal) mg/dL Ur Leukocyte Esterase (Negative) Urine Microscopic RBC (0-3) per hpf Urine Microscopic WBC (0-3) per hpf Ur Squamous Epith Cells (None-Few) per lpf Urine Bacteria (None-Few) per hpf Hyaline Casts (None-Few) per lpf Ur Culture Indicated? (NO) - Radiology Data Radiology results reviewed: Yes I reviewed the patient's radiology results. Chest X-Ray 07/05/19 21:17 IMPRESSION: No acute abnormality detected. D/ / Anderson Maddox MD / Anderson Maddox MD Interpreting Provider: Anderson Maddox MD - EKG Data EKG #1 EKG attestation: Yes I reviewed and interpreted this EKG. EKG results narrative: EKG shows a normal sinus rhythm with ventricular rate of 68. Left bundle branch block. No significant ST segment elevation or depression. No significant change from prior EKG dated 06/17/2019. Critical Care Time Critical Care Time: Yes Total Critical Care Time: 40 Attestation: Critical care performed: Time is exclusive of separately billable procedures. Time includes: direct patient care, patient reassessment, coordination of patient care, interpretation of data (laboratory data, radiology data, and respiratory data), review of patient's medical records, medical consultation and documentation of patient care. Procedures included in critical care time: Procedures excluded from critical care time: Attestation Statement - Attestation Attestation: I, Thuan Raphael MD, personally evaluated this patient and discussed their management with the resident physician. I reviewed the resident's note and agree with the documented findings, medical decision making, and plan of care. I reviewed the residents documentation and agree with the residents assessment and plan of care. I have personally had face to face time with the patient. I personally supervised and was present for the prado/critical portions of the following procedures completed by the resident: EKG interpretation. 73-year-old female presents to the emergency department with a complaint of increased shortness of breath over the past few days. She also has had a 5-6 pound weight gain with some swelling of her lower extremities and abdomen. No cough or fever. No significant chest pain. Patient was just in the hospital about 2 weeks ago for CHF. She developed acute kidney injury secondary to Lasix. She is presently on hydrochlorothiazide 12.5 mg daily and is not on any Lasix. She states the shortness of breath is worse with exertion or movement or talking. It is not worse with lying flat and she states that she actually breathes better with lying flat. On examination patient is a well-developed obese elderly female in no acute distress. She is tachypneic and dyspneic with conversation or activity. She got more short of breath just sitting upright in the bed. There is no cyanosis or diaphoresis. Breath sounds are decreased but equal bilaterally. Heart regular rate and rhythm. Abdomen is soft and nontender with normal bowel sounds. There is 1+ pedal edema bilaterally. EKG shows a normal sinus rhythm with ventricular rate of 68. Left bundle branch block. No significant ST segment elevation or depression. No significant change from prior EKG dated 06/17/2019. Chest x-ray showed no acute abnormality. Labs reviewed. LESTER with acute increased creatinine. Increase of BNP from baseline. Mild hyperkalemia of 5.3. Dr. Goode discussed the case with the dry box operator, Dr. Adams, and she recommended to go ahead and give the patient a dose of Lasix 40 mg IV. Admission by the hospitalist and she will consult on the patient. The hospitalist, Dr. Caballero, was consulted and accepted admission of the patient.
[2019-07-05] MEDS ORDERED: Furosemide 40 MG/4 ML VIAL IVP ONE (22:50)
[2019-07-06] MEDS ORDERED: Dextrose Gel 15 GM/37.5 ML TUBE PO PRN ×2 (01:52)
[2019-07-06] MEDS ORDERED: *HR* Dextrose 50 % in Water (Syg) 50 ML SYRINGE IVP PRN (01:52)
[2019-07-06] MEDS ORDERED: Acetaminophen 325 MG TABLET PO PRN (01:52)
[2019-07-06] MEDS ORDERED: traMADol 50 MG TABLET PO PRN (01:52)
--- NOTE | 2019-07-06 02:04 | Internal Med History&Physical ---
Date of Encounter: 07/06/19 Time of Encounter: 02:03 Internal Medicine - H&P: HPI Chief complaint: sob Admitted From: Home Plans for Post Hospital Care: Home History of present illness: Candy Lopez is a 73 year old woman with multiple comorbidities including coronary artery disease, diabetes, chronic kidney disease and diastolic dysfunction with moderate to severe pulmonary hypertension who was admitted here about 20 days ago with complaints of increasing shortness of breath and generalized edema, with findings of a mildly elevated BNP with increased pulmonary vascular congestion concerning for acute on chronic heart failure complicated by acute on chronic kidney disease. She was given diuretic therapy and was discharged with ongoing follow-up in nephrology. She presents to the ER tonight complaining of 6lbs weight gain in the past week in the setting of increasing shortness of breath and some swelling in her lower extremities. She also says her urine output today has been minimal. She becomes dyspneic with even mild exertion. Imaging and lab work done in the ER were grossly unremarkable except noting an increase in her creatinine to 2.42 from a baseline closer to 2.0 previously. Her BNP was 413, up from the 300s she had in the recent past. She was given 1 dose of 40mg furosemide after discussion with her hot pipe gauger. At the time of my assessment she offered no other complaints. Not e, she is legally blind. Vitals: Reviewed General: Well developed woman lying comfortably in bed in NAD. Skin: Warm and supple. HEENT: Moist mucous membranes. No conjunctivae pallor. Neck: No lymphadenopathy. No JVD. No carotid bruits. No palpable thyroid. Chest: Normal thoracic expansion. Normal breath sounds. No wheezes, rales or rhonchi. Heart: Normal S1 & S2; rhythmic. No rubs or murmurs. Abdomen: Mildly distended, soft and non-tender to palpation. No peritoneal reaction. Extremities: No clubbing, cyanosis. Mild 1+ edema in both lower legs. Neurological: Awake, alert and oriented to person, place and time. No focal deficits. Psych: Affect appropriate. Assessment/Plan 1. Acute kidney injury: Concern that it may be secondary to poor effective volemia from cardiac dysfunction leading to poor renal perfusion. Her oral intake has been aequate and she has not been using loop diuretics. Will assess what the dose of IV furosemide does to her urine output and serum creatinine. If the response is positive, will keep her on a low dose to continue in conjunction with the chlorathlidone. Hold Lisinopril in the interim. 2. Acute on chronic diastolic heart failure?: She is not notably fluid overloaded based on her current physical state and no signs of pulmonary edema. Diastolic dysfunction patients can be somewhat sensitive to fluid changes and its possible her shortness of breath is secondary to this but perhaps more so from the pulmonary hypertension rather than pulmonary edema per se. No indic ation for supplemental oxygen at the moment. Will assess response to diuresis. 3. Diabetes: Excellent control has been achieved since 2016. Current A1C of 4.9% indicates to me that she should not be on any oral diabetic agent so this should be addressed with her PCP. 4. CAD: The patient has 2 stents. On aspirin. Past Med Surg Social Fam HX - Past Medical History Medical history: CHF, diabetes, hyperlipidemia, hypertension, renal disease, thyroid disease Additional medical history: anemia, legally blind Psychiatric history: anxiety, depression - Past Surgical History Surgical History: cataract, hysterectomy, orthopedic, other Additional surgical history: heart stents x2, "bowel tear surgery" - Social History Smoking Status: Former smoker Smokeless Tobacco Status: No Alcohol use: rarely Drug use: none Internal Medicine - H&P: Meds Lisinopril [Zestril] 20 mg PO DAILY 03/01/16 [History] Escitalopram [Lexapro] 20 mg PO DAILY 10/29/17 [History] Fenofibrate Nanocrystallized [Triglide] 160 mg PO DAILY 10/29/17 [History] Fluticasone Propionate Nasal [Flonase] 1 spr NS DAILY 10/29/17 [History] Folic Acid 0.8 mg PO DAILY 10/29/17 [History] Levothyroxine Sodium 125 mcg PO 0630 10/29/17 [History] Lovastatin 40 mg PO DAILY 10/29/17 [History] Omeprazole [PriLOSEC] 40 mg PO DAILY 10/29/17 [History] Melatonin 10 mg PO HS 06/17/19 [History] OxyCODONE/APAP 10/325 [Percocet 10/325 MG] 1 tab PO Q6HR PRN 06/17/19 [History] Ascorbic Acid [Vitamin C] 500 mg PO DAILY 06/18/19 [History] Aspirin [Adult Aspirin Regimen] 81 mg PO DAILY 06/18/19 [History] Chlorthalidone 25 mg PO DAILY 06/18/19 [History] Cholecalciferol (Vitamin D3) [Vitamin D3] 2,000 unit PO DAILY 06/18/19 [History] Ferrous Sulfate 650 mg PO DAILY 06/18/19 [History] Pioglitazone HCl 30 mg PO DAILY 06/18/19 [History] Aspirin Enteric Coated [Aspirin EC] 81 mg PO DAILY tablet. 06/23/19 [Rx] Allergy/AdvReac Type Severity Reaction Status Date / Time gabapentin Allergy See Verified 07/05/19 21:17 Comments budesonide [From Symbicort] AdvReac Blurry Verified 07/05/19 21:17 Vision Formoterol [From Symbicort] AdvReac Blurry Verified 07/05/19 21:17 Vision Sulfa (Sulfonamide AdvReac Blister Verified 07/05/19 21:17 Antibiotics) All Systems PM: A 10-system review of systems was performed and is negative for pertinent findings except as documented above in the HPI. Family history reviewed and found non-contributory. - Constitutional Vitals: Temp Pulse Resp BP Pulse Ox 98.1 F 68 18 131/88 99 07/06/19 01:36 07/06/19 01:36 07/06/19 01:36 07/06/19 01:36 07/06/19 01:36 Exam: . Internal Med - H&P Results - Labs CBC & Chem 7: 07/05/19 21:45 07/05/19 21:45 Labs: Short CBC 07/05/19 Range/Units 21:45 WBC 4.2 L (4.3-11.1) K/mcL Hgb 9.1 L (11.5-15.4) g/dL Hct 28.8 L (35.3-44.9) % Plt Count 111 L (140-400) K/mcL Neutrophils # 2.9 (1.6-8.9) K/mcL BMP 07/05/19 21:45 Sodium 138 Potassium 5.3 H Chloride 110 H Carbon Dioxide 20 L BUN 58 H Creatinine 2.42 H Glucose 123 H Calcium 9.1 Cardiac Enzymes 07/05/19 Range/Units 21:45 Troponin I < 0.03 (< 0.04) ng/mL Liver Function 07/05/19 Range/Units 21:45 Total Bilirubin 0.6 (0.3-1.0) mg/dL AST 46 H (13-39) Units/L ALT 27 (7-52) Units/L Alkaline Phosphatase 80 (34-104) Units/L Albumin 4.1 (3.5-5.7) g/dL Urine 07/05/19 Range/Units 21:24 Urine Color Yellow (Yellow) Urine Clarity Clear (Clear) Urine pH 5.0 (5.0-8.0) pH Units Ur Specific Bennett 1.019 (1.010-1.025) Urine Protein 30 H (Neg-Trace) mg/dL Urine Glucose (UA) Normal (Normal) mg/dL - Impressions ITS Impressions Chest X-Ray 07/05/19 21:17 IMPRESSION: No acute abnormality detected. D/ / Anderson Maddox MD / Anderson Maddox MD Interpreting Provider: Anderson Maddox MD - Time Spent With Patient Total time spent is greater than 50% in coordination of care (as documented) at patient's floor/unit and/or counseling patient:
[2019-07-06] MEDS: *HR* Heparin 5,000 UNIT/ML VIAL SQ SCH ×2 (05:33→16:13)
[2019-07-06 06:13] LABS: Calcium 8.9 mg/dL (8.6-10.3); Potassium 5.2 mEq/L (3.5-5.1)
--- NOTE | 2019-07-06 08:02 | Electrocardiograph Report ---
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
--- NOTE | 2019-07-06 08:04 | Event Note ---
Date of Encounter: 07/06/19 Time of Encounter: 09:00 I have seen and independently assessed this patient and I agree with plan per night team Plan Acute worsening of chronic diastolic CHF. Will continue lasix. Monitor ins and outs LESTER on CKD. 3. Renal following
[2019-07-06] MEDS: Insulin LISPRO 300 UNITS/3 ML VIAL SQ SCH ×3 (08:57→15:58)
[2019-07-06] MEDS ORDERED: Ascorbic Acid 500 MG TABLET PO SCH ×2 (09:00→12:00)
[2019-07-06] MEDS ORDERED: Furosemide 40 MG/4 ML VIAL IVP SCH ×2 (09:00→17:00)
[2019-07-06] MEDS: Fenofibrate 54 MG TABLET PO SCH (09:35)
[2019-07-06] MEDS: Folic Acid 1 MG TABLET PO SCH (09:35)
[2019-07-06] MEDS: Aspirin Enteric Coated 81 MG Tablet PO SCH (09:35)
[2019-07-06] MEDS: Fluticasone Propionate Nasal 50 MCG/SPRAY BOTTLE NS SCH (09:36)
[2019-07-06] MEDS: Cholecalciferol (D-3) 1,000 UNIT (25MCG) TABLET PO SCH (09:36)
--- NOTE | 2019-07-06 14:04 | Nephrology Consult Note ---
<Familia Pineda - Last Filed: 07/06/19 17:21> Date of Encounter: 07/06/19 Time of Encounter: 14:27 Assessment and Plan (1) Acute kidney injury superimposed on chronic kidney disease Status: Acute History of Present Illness - History of Present Illness Hospital course from chart review: Presented to the ER on 07/05/19 for shortness of breath and swelling PMH: CKD stage III, diabetes mellitus type 2, CAD status post 2 stents placed at different times and without acute myocardial infarction. heart failure with pre served ejection fraction last echo 06/18/19 showing LVEF of 60%, mild LV diastolic dysfunction, mild dilation of RV, mild to moderate tricuspid regurg, moderate to severe pulmonary hypertension. Thyroid disease. Hypertension. Legal blindness. Initial vitals stable Initial labs significant for potassium 5.3. Decreased BMP carbon dioxide at 20. BUN 58 from 47 on 06/27. Creatinine 2.4 to from 2.06 on 06/27. Recent creatinine baseline around 1.6. History reported recent GFR around 18-24. Chart review confirms this. High calculated serum osmolality. Urinalysis showed protein of 30 with no other significant findings. EKG read as left bundle branch block and no change from 06/17. CXR read as no acute findings. Interview: CC: "Shortness of breath" History of present illness Patient is a 73-year-old female who presented to the ER on 07/05/19 for shortness of breath and swelling. Similar episode with admission on 06/17. States that the only difference they can think of is that they did not let this episode lasted as long as the last one before coming to the hospital. Gradual onset of shortness of breath that began Thursday and worsened yesterday so that she could not even do minimal activity without becoming short of breath. Worsened upright positioning. Swelling present in bilateral lower extremities slightly worse on the right and abdominal area. Reports that her current dose of home diuretics has not been adequate. Has been on chlorthalidone 25 mg once daily since at least 12/01/18. Reports a recent weight gain of around 1 pound per day. Intake: Daily fluid intake decreased from 3-4 bottles of pop per day to currently 32 ounces per day including 1 Coke and the rest being water and milk. She has been trying to break more of her food as opposed to frying. She has attempted to cut down on her salt intake. When she cooks she uses 3/4 the amount of salt that she used to use. She uses a scoop at home and they could not be sure what the measurement of the salt was but only that it was 3/4 of what she had been using. She has not been having additional salt to the food that she cooks. She used to eat out 3-4 nights per week now they eat out 1-2 nights per week. Output: Urine production has been decreased during the last few days. She said that she had a significant urinary response to Lasix. Has experienced hesitancy but after urine flow begins it is free flowing and normal in amount after the Lasix. She saw her PCP last week. No new medication changes. No recent antibiotic use or ibuprofen use. Today the female family member reports marked improvement in the patient's swelling and shortness of breath while sitting up. PMH: CK D stage III, diabetes mellitus type 2, CAD status post 2 stents placed at different times and without acute myocardial infarction. heart failure with preserved ejection fraction last echo 06/18/19 showing LVEF of 60%, mild LV diastolic dysfunction, mild dilation of RV, mild to moderate tricuspid regurg, moderate to severe pulmonary hypertension. Thyroid disease. Hypertension. FH: Mother and older sister - breast cancer. Father and older sister from heart disease. Past Med Surg Social Fam HX - Past Medical History Medical history: CHF, diabetes, hyperlipidemia, hypertension, renal disease, thyroid disease Additional medical history: anemia, legally blind Psychiatric history: anxiety, depression - Past Surgical History Surgical History: cataract, hysterectomy, orthopedic, other Additional surgical history: heart stents x2, "bowel tear surgery" - Social History Smoking Status: Former smoker Smokeless Tobacco Status: No Alcohol use: rarely Drug use: none - Family History Sister Hx Family Cardiac Disorders: Yes ([place]) Medications and Allergies Lisinopril [Zestril] 20 mg PO DAILY 03/01/16 [History] Escitalopram [Lexapro] 20 mg PO DAILY 10/29/17 [History] Fenofibrate Nanocrystallized [Triglide] 160 mg PO DAILY 10/29/17 [History] Fluticasone Propionate Nasal [Flonase] 1 spr NS DAILY 10/29/17 [History] Folic Acid 0.8 mg PO DAILY 10/29/17 [History] Levothyroxine Sodium 125 mcg PO 0630 10/29/17 [History] Lovastatin 40 mg PO DAILY 10/29/17 [History] Omeprazole [PriLOSEC] 40 mg PO DAILY 10/29/17 [History] Melatonin 10 mg PO HS 06/17/19 [History] OxyCODONE/APAP 10/325 [Percocet 10/325 MG] 1 tab PO Q6HR PRN 06/17/19 [History] Ascorbic Acid [Vitamin C] 500 mg PO DAILY 06/18/19 [History] Chlorthalidone 25 mg PO DAILY 06/18/19 [History] Cholecalciferol (Vitamin D3) [Vitamin D3] 2,000 unit PO DAILY 06/18/19 [History] Ferrous Sulfate 650 mg PO DAILY 06/18/19 [History] Pioglitazone HCl 30 mg PO DAILY 06/18/19 [History] Aspirin Enteric Coated [Aspirin EC] 81 mg PO DAILY tablet. 06/23/19 [Rx] Furosemide [Lasix] 40 mg PO DAILY 30 Days #30 tablet 07/07/19 [Rx] Allergy/AdvReac Type Severity Reaction Status Date / Time gabapentin Allergy See Verified 07/07/19 07:37 Comments budesonide [From Symbicort] AdvReac Blurry Verified 07/07/19 07:37 Vision Formoterol [From Symbicort] AdvReac Blurry Verified 07/07/19 07:37 Vision Sulfa (Sulfonamide AdvReac Blister Verified 07/07/19 07:37 Antibiotics) Review of Systems All Systems review (narrative): Admits: Occasional lower quadrant/suprapubic abdominal pain that she has been worked up for previously with ultrasound of the appendix. Leg cramps. Legal blindness. Driving to [place] days before her last hospitalization. Daughter reports significant snoring. Denies: History of blood clots, cancer, hemoptysis, orthopnea, PND. Exam - Vital Signs Vital signs: Initial Vital Signs Temp Pulse Resp BP Pulse Ox 98.0 F 73 18 126/70 100 07/05/19 20:13 07/05/19 20:13 07/05/19 20:13 07/05/19 20:13 07/05/19 20:13 Vital Signs - Last 8 Hours Temp Pulse Resp BP Pulse Ox 07/06/19 10:55 98.5 F 65 18 108/65 99 07/06/19 07:13 98.4 F 64 18 108/55 98 Intake and Output 07/05/19 07/06/19 07/06/19 23:59 07:59 15:59 Other: Weight 86.818 kg 86.818 kg Blood Glucose* 92 94 Patient Weight 07/06/19 23:59 Weight 86.818 kg Additional exam: Objective General: Elderly female. No acute distress Skin: Alexandre appearance. Good turgor Eyes: Moist. Anicteric Neck: No carotid bruits heard. No obvious JVD or hepatojugular reflux. Cardiac: Distant heart sounds. Regular rate and rhythm. Possible extremely faint systolic murmur over aortic post that is likely artifact. No rubs or gallops. Respiratory: Dry crackles of the right base. Other carcamo CTA. GI: Some tenderness of right lower quadrant. Obese. Extremities: Some nonpitting pedal edema around the medial malleolus of the tibias and ankle joints. Neuro: No obvious tremors noted. Patient is legally blind and her eyes do not fix on person she is addressing. Psych: Answers questions coherently. Appropriate mood and behavior A/P #LESTER on CKDIII Consider secondary to cardiorenal syndrome. BNP 413 from 315 on 06/18/19. GFR baseline around 24 Creatinine baseline around 1.6 BUN baseline recently around 45 -BUN 58 from 47 on 06/27. repeat at 67 -Creatinine 2.4 to from 2.06 on 06/27. repeat at 2.33 -GFR stable since last visit at 20>21 -Volume overload -Urinalysis showed protein of 30 with no other significant findings. -Urine sodium, creatinine, urea, protein pending -Strict I's and O's -Avoid nephrotoxic medications -continue Diuresis -will likely need home Lasix therapy Results - Lab Results 07/05/19 21:45 07/06/19 05:20 Most recent lab results 07/06/19 05:20 Calcium 8.9 Consult Discharge Plan - Plan Instructions: Furosemide (By mouth) Referrals: Merna Hawkins CNP [Primary Care Provider] - 07/14/19 1:15 am (apt made on 07/07/19) Prescriptions: Furosemide [Lasix] 40 mg PO DAILY 30 Days #30 tablet <Jaziel Jang - Last Filed: 07/17/19 14:49> Date of Encounter: 07/06/19 History of Present Illness - Reason for Consult Consult date: 07/06/19 Exam - Vital Signs Vital signs: Initial Vital Signs Temp Pulse Resp BP Pulse Ox 98.0 F 73 18 126/70 100 07/05/19 20:13 07/05/19 20:13 07/05/19 20:13 07/05/19 20:13 07/05/19 20:13 Results - Lab Results 07/07/19 04:42 07/07/19 04:42 - Attending Attestation I examined this patient and my medical decision-making was reviewed with the Resident Physician. I agree with the documented findings, disposition and treatment plan as described except to the extent set forth below. 73 y o female with PMH of DM, HTN, CAD, diastolic CHF with pulmHTN and stage 3 CKD admitted after a recent discharge with similar complaints of SOB and LE edema. Renal consulted for worsened SCr and to help with diuresis. Pt seen and examined with family already improving with iv lasix overnight. On exam: Gen NAD, Lungs good areation with sl. decreased BS bases bilat, Heart S1S2, Abd soft NT/ND, obese, Ext with LE edema, improved per pt and Neuro AAOx3. Labs reviewed. Likely cardiorenal syndrome. Continue diuretics. Low sodium diet. Fluid restriction. Dx #1 Lester Dx #2 Stage 3 cKD Dx #3 acute CHF.
[2019-07-06 15:16] LABS: Creatinine,Urine 15 mg/dL; Sodium, Urine 134.8 mEq/L
[2019-07-06] MEDS: Furosemide 40 MG/4 ML VIAL IVP SCH (16:05)
[2019-07-06] MEDS ORDERED: Insulin LISPRO 300 UNITS/3 ML VIAL SQ SCH (21:00)
[2019-07-06] MEDS ORDERED: Melatonin 3 MG TABLET PO SCH (21:00)
[2019-07-07 05:15] LABS: Hemoglobin 8.8 g/dL (11.5-15.4)
[2019-07-07 05:17] LABS: Basophils % 0.6 %; Eosinophils # 0.1 K/mcL (0.0-0.6); Eosinophils % 3.8 %; Hematocrit 27.6 % (35.3-44.9); Immature Granulocytes % 0.3 % (0-4); Immature Platelets 3.7 % (1.1-6.1); Lymphocytes % 30.4 %; Mean Corpuscular HGB Conc 31.9 g/dL (31.6-35.5); Mean Corpuscular Hemoglobin 31.5 pg (28.0-33.3); Mean Corpuscular Volume 98.9 fL (83.0-100.0); Mean Platelet Volume 11.5 fL (9.4-12.4); Monocytes # 0.4 K/mcL (0.0-1.3); Monocytes % 11.3 %; Neutrophils # 1.7 K/mcL (1.6-8.9); Red Blood Count 2.79 M/mcL (3.82-4.97); Red Cell Distribution Width 15.1 % (11.5-14.5); Segmented Neutrophils % 53.6 %; White Blood Count 3.2 K/mcL (4.3-11.1)
[2019-07-07 05:29] LABS: Platelet Count 92 K/mcL (140-400)
[2019-07-07 05:33] LABS: Calcium 9.2 mg/dL (8.6-10.3); Magnesium 2.1 mg/dL (1.6-2.6); Phosphorous 4.7 mg/dL (2.7-4.5)
[2019-07-07] MEDS: *HR* Heparin 5,000 UNIT/ML VIAL SQ SCH (05:37)
--- NOTE | 2019-07-07 07:50 | Internal Med Progress Note ---
Hospitalist Progress Note - Encounter Date of Encounter: 07/07/19 - Exam Vitals: Temp Pulse Resp BP Pulse Ox 97.8 F 69 17 116/59 96 07/07/19 04:31 07/07/19 04:31 07/07/19 04:31 07/07/19 04:31 07/07/19 04:31 Exam: . - Time Spent with Patient Total time spent is greater than 50% in coordination of care (as documented) at patient's floor/unit and/or counseling patient: Internal Medicine: Result - Labs CBC & Chem 7: 07/07/19 04:42 07/07/19 04:42 Labs: Short CBC 07/07/19 Range/Units 04:42 WBC 3.2 L (4.3-11.1) K/mcL Hgb 8.8 L (11.5-15.4) g/dL Hct 27.6 L (35.3-44.9) % Plt Count 92 L (140-400) K/mcL Neutrophils # 1.7 (1.6-8.9) K/mcL BMP 07/07/19 04:42 Sodium 142 Potassium 4.0 Chloride 107 Carbon Dioxide 26 BUN 62 H Creatinine 2.28 H Glucose 81 Calcium 9.2 Consult Discharge Plan - Plan Referrals: Merna Hawkins, VIDEO ENGINEER [Primary Care Provider] -
--- NOTE | 2019-07-07 08:12 | Nephrology Progress Note ---
Date of Encounter: 07/07/19 Time of Encounter: 07:45 - Assessment and Plan (1) Acute kidney injury superimposed on chronic kidney disease Status: Acute Subjective Interval history: S It is easier for her to breathe today. She feels that her swelling has remained down. Input: She has not been drinking very much because of decreased thirst, maybe 30 ounces. Output: She states she is being maybe 40% more than she does at home. Reports 7-8 bowel movements yesterday. She relates the bowel movements to 2 bottles of a certain fluid that they had her drink in order to decrease her potassium. O PE Gen.: Elderly female. Resting. Skin: Alexandre appearance. Good turgor Eyes: Moist. Anicteric Neck: Left carotid bruit. No carotid bruit heard on the right. No obvious JVD or hepatojugular reflux Cardiac: At least 3/6 systolic murmur best heard over the pulmonic and mitral posts that decreases with handgrip Respiratory: Right basilar crackles. No obvious left basilar crackles. GI: Some tenderness of at least suprapubic and right lower quadrant that has been chronic for this patient. Obese Extremities: Bilateral pedal edema around the medial ankle area. Neuro: No obvious tremor Psych: Answers questions coherently. Appropriate mood and behavior A/P #LESTER on CKD III Consider secondary to cardiorenal syndrome. BNP initially 413 from 315 on 06/18/19. GFR baseline around 24 Creatinine baseline around 1.6 BUN baseline recently around 45 Urinalysis showed protein of 30 with no other significant findings. FE urea on 07/06/19 at 43.1% suggesting component of intrinsic renal disease. This is compared to 06/18 studies that showed 3365.6%. -BUN 58 from 47 on 06/27. repeat at 67>62 -Creatinine 2.4 to from 2.06 on 06/27. repeat at 2.33>2.28 -GFR stable since last visit at 20>21>21 -Urine sodium 134.8, creatinine 15, urea 176 -urine total protein <4 -Strict I's and O's -Avoid nephrotoxic medications -will likely need home Lasix therapy Objective - Vital Signs Vital signs: Vital Signs Temp Pulse Resp BP Pulse Ox 07/07/19 04:31 97.8 F 69 17 116/59 96 07/06/19 23:41 98.1 F 66 16 94/45 95 07/06/19 19:47 98.6 F 66 17 115/66 96 07/06/19 15:53 98.8 F 65 18 120/60 97 07/06/19 10:55 98.5 F 65 18 108/65 99 Intake and Output 07/06/19 07/06/19 07/07/19 15:59 23:59 07:59 Intake Total 1000 / 1000 200 / 200 Output Total 500 / 500 300 / 300 Balance 500 / 500 -100 / -100 Intake: Oral 1000 / 1000 200 / 200 Output: Urine 500 / 500 300 / 300 Other: # Voids 2 Weight 83.5 kg Blood Glucose* 132 119 - Lab 07/07/19 04:42 07/07/19 04:42 Most recent lab results 07/07/19 04:42 Calcium 9.2 Phosphorus 4.7 H Magnesium 2.1 Consult Discharge Plan - Plan Instructions: Furosemide (By mouth) Referrals: Merna Hawkins CNP [Primary Care Provider] - 07/14/19 1:15 am (apt made on 07/07/19) Prescriptions: Furosemide [Lasix] 40 mg PO DAILY 30 Days #30 tablet
[2019-07-07 08:16] VITALS: BP 148/69
[2019-07-07] MEDS: Fluticasone Propionate Nasal 50 MCG/SPRAY BOTTLE NS SCH (08:30)
[2019-07-07] MEDS: Folic Acid 1 MG TABLET PO SCH (08:30)
[2019-07-07] MEDS: Aspirin Enteric Coated 81 MG Tablet PO SCH (08:30)
[2019-07-07] MEDS: Fenofibrate 54 MG TABLET PO SCH (08:30)
[2019-07-07] MEDS: Cholecalciferol (D-3) 1,000 UNIT (25MCG) TABLET PO SCH (08:30)
[2019-07-07] MEDS: Furosemide 40 MG/4 ML VIAL IVP SCH (08:30)
[2019-07-07] MEDS: Insulin LISPRO 300 UNITS/3 ML VIAL SQ SCH (08:31)
--- NOTE | 2019-07-07 10:32 | Discharge Summary ---
Date of Encounter: 07/07/19 Time of Encounter: 10:30 - Discharge Diagnosis (1) Acute on chronic diastolic (congestive) heart failure Priority: Primary Status: Acute Assessment and Plan: 73 year old woman with multiple comorbidities including coronary artery disease, diabetes, chronic kidney disease and diastolic dysfunction with moderate to severe pulmonary hypertension who was admitted here about 20 days ago with complaints of increasing shortness of breath and generalized edema, with findings of a mildly elevated BNP with increased pulmonary vascular congestion concerning for acute on chronic heart failure complicated by acute on chronic kidney disease. She was given diuretic therapy and was discharged with ongoing follow-up in nephrology. She presents to the ER tonight complaining of 6lbs weight gain in the past week in the setting of increasing shortness of breath and some swelling in her lower extremities. She also says her urine output today has been minimal. She becomes dyspneic with even mild exertion. Imaging and lab work done in the ER were grossly unremarkable except noting an increase in her creatinine to 2.42 from a baseline closer to 2.0 previously She was assessed with acute on chronic diastolic CHF and LESTER on CKD stage 3. Both her volume overload and kidney function improved with diuresis. She was discharged on po lasix and will follow up with renal as an outpatient (2) Acute kidney injury superimposed on CKD Priority: Primary Status: Acute Hospital course: Ms. Lopez is a 73 year old female - Time Spent with Patient Total time spent providing and/or coordinating discharge services: - Discharge Medications Prescriptions: New Furosemide [Lasix] 40 mg PO DAILY 30 Days #30 tablet Continued Levothyroxine Sodium 125 [place] PO [address]30 Escitalopram [Lexapro] 20 mg PO DAILY Folic Acid 0.8 mg PO DAILY Omeprazole [PriLOSEC] 40 mg PO DAILY Lovastatin 40 mg PO DAILY Fluticasone Propionate Nasal [Flonase] 1 spr NS DAILY Fenofibrate Nanocrystallized [Triglide] 160 mg PO DAILY OxyCODONE/APAP 10/325 [Percocet 10/325 MG] 1 tab PO Q6HR PRN PRN Reason: Pain Melatonin 10 mg PO HS Ascorbic Acid [Vitamin C] 500 mg PO DAILY Chlorthalidone 25 mg PO DAILY Cholecalciferol (Vitamin D3) [Vitamin D3] 2,000 unit PO DAILY Ferrous Sulfate 650 mg PO DAILY Pioglitazone HCl 30 mg PO DAILY Aspirin Enteric Coated [Aspirin EC] 81 mg PO DAILY tablet.dr Lisinopril [Zestril] 20 mg PO DAILY Home Medications: Lisinopril [Zestril] 20 mg PO DAILY 03/01/16 [History] Escitalopram [Lexapro] 20 mg PO DAILY 10/29/17 [History] Fenofibrate Nanocrystallized [Triglide] 160 mg PO DAILY 10/29/17 [History] Fluticasone Propionate Nasal [Flonase] 1 spr NS DAILY 10/29/17 [History] Folic Acid 0.8 mg PO DAILY 10/29/17 [History] Levothyroxine Sodium 125 mcg PO 0610/29/17 [History] Lovastatin 40 mg PO DAILY 10/29/17 [History] Omeprazole [PriLOSEC] 40 mg PO DAILY 10/29/17 [History] Melatonin 10 mg PO HS 06/17/19 [History] OxyCODONE/APAP 10/325 [Percocet 10/325 MG] 1 tab PO Q6HR PRN 06/17/19 [History] Ascorbic Acid [Vitamin C] 500 mg PO DAILY 06/18/19 [History] Chlorthalidone 25 mg PO DAILY 06/18/19 [History] Cholecalciferol (Vitamin D3) [Vitamin D3] 2,000 unit PO DAILY 06/18/19 [History] Ferrous Sulfate 650 mg PO DAILY 06/18/19 [History] Pioglitazone HCl 30 mg PO DAILY 06/18/19 [History] Aspirin Enteric Coated [Aspirin EC] 81 mg PO DAILY tablet. 06/23/19 [Rx] Furosemide [Lasix] 40 mg PO DAILY 30 Days #30 tablet 07/07/19 [Rx] Allergies/Adverse Reactions: Allergy/AdvReac Type Severity Reaction Status Date / Time gabapentin Allergy See Verified 07/07/19 07:37 Comments budesonide [From Symbicort] AdvReac Blurry Verified 07/07/19 07:37 Vision Formoterol [From Symbicort] AdvReac Blurry Verified 07/07/19 07:37 Vision Sulfa (Sulfonamide AdvReac Blister Verified 07/07/19 07:37 Antibiotics) Date of admission: 07/06/19 00:37 Primary care physician: Merna Hawkins CNP Consults: 07/05/19 22:43 Consult to Nephrology [CONS] Stat Consulting Provider: Kidney Kat/ORIMI/PARG/BROWN Reason for Consult: LESTER on CKD Time Notified: 22:44 Call Completed: No - Constitutional Vitals: Temp Pulse Resp BP Pulse Ox 97.7 F 59 18 148/69 97 07/07/19 08:11 07/07/19 08:11 07/07/19 08:11 07/07/19 08:11 07/07/19 08:34 Exam: NAd - Head Head exam: Present: atraumatic, normocephalic - Eye Eye exam: Present: PERRL, conjuntiva pink, sclera anicteric Pupils: Present: PERRL - Neck Neck exam general surgery: Present: supple, trachea midline. Absent: lymphadenopathy - Respiratory Respiratory exam: Present: CTAB. Absent: accessory muscle use, rales, rhonchi, wheezes - Cardiovascular Cardiovascular exam: Present: RRR, +S1, +S2. Absent: diastolic murmur, gallop, rubs, systolic murmur - GI/Abdominal GI/Abdominal exam: Present: normal bowel sounds, soft, no peritoneal signs. Absent: distended, tenderness - Extremities Exam Extremities exam: Present: warm, radial pulses palpable and symmetrical. Absent: calf tenderness, cyanotic, pedal edema - Neurological Exam Neurological exam: Present: CN II-XII intact, oriented X3, no focal deficits. Absent: pronater drift, facial droop, speech deficit - Skin Skin exam: Present: dry, intact - Patient Status Disposition: Home, Self-Care Condition: Good - Ambulatory Orders Ambulatory Orders: Renal Function Panel [CHEM] Time Frame: 1 Week, Facility: [facility], Location: [facility] - Discharge Instructions Instructions: Furosemide (By mouth) Follow Up With: Merna Hawkins CNP [Primary Care Provider] - 07/14/19 1:15 am (apt made on 07/07/19)
== END 2019-07-07 11:16 | disposition home or self-care (01) ==
LOC: EMEROOARM 19:19 → 2ANU 19:19
PROVIDERS: ADMIT Internal Medicine; ATTEND Internal Medicine

== ENCOUNTER 2019-09-20 14:34 | Inpatient (IN) ==
[2019-09-20 15:05] LABS: Basophils % 0.3 %; Eosinophils # 0.2 K/mcL (0.0-0.6); Eosinophils % 4.6 %; Hematocrit 20.7 % (35.3-44.9); Hemoglobin 6.5 g/dL (11.5-15.4); Immature Granulocytes % 0.6 % (0-4); Lymphocytes # 0.6 K/mcL (0.6-4.6); Lymphocytes % 15.8 %; Mean Corpuscular HGB Conc 31.4 g/dL (31.6-35.5); Mean Corpuscular Hemoglobin 33.5 pg (28.0-33.3); Mean Corpuscular Volume 106.7 fL (83.0-100.0); Monocytes # 0.3 K/mcL (0.0-1.3); Monocytes % 7.8 %; Neutrophils # 2.5 K/mcL (1.6-8.9); Platelet Count 89 K/mcL (140-400); Red Blood Count 1.94 M/mcL (3.82-4.97); Red Cell Distribution Width 15.5 % (11.5-14.5); Segmented Neutrophils % 70.9 %; White Blood Count 3.5 K/mcL (4.3-11.1)
[2019-09-20 15:16] LABS: INR 1.1; Prothrombin Time 12.7 Seconds (9.4-12.1)
[2019-09-20] MEDS ORDERED: Furosemide 40 MG/4 ML VIAL IVP ONE ×2 (15:17→21:30)
[2019-09-20] MEDS ORDERED: Pantoprazole 40 MG VIAL IVP ONE (15:25)
[2019-09-20 15:26] LABS: Calcium 8.5 mg/dL (8.6-10.3); Potassium 4.7 mEq/L (3.5-5.1)
[2019-09-20 15:30] LABS: Troponin I 0.08 ng/mL (< 0.04)
[2019-09-20] MEDS ORDERED: 0.9 % Sodium Chloride 250 ML ONE (15:40)
[2019-09-20 16:41] LABS: Thyroid Stimulating Hormone 0.083 mcIU/mL (0.340-5.600)
[2019-09-20] MEDS ORDERED: Naloxone 0.4 MG/ML INJ IVP PRN (17:38)
[2019-09-20] MEDS ORDERED: Dextrose Gel 15 GM/37.5 ML TUBE PO PRN ×2 (17:43)
[2019-09-20] MEDS ORDERED: *HR* Dextrose 50 % in Water (Syg) 50 ML SYRINGE IVP PRN (17:43)
[2019-09-20] MEDS ORDERED: D5% in Water 1,000 ML IVC PRN (17:43)
[2019-09-20 18:14] LABS: Estimated Average Glucose 103 mg/dl
[2019-09-20] MEDS ORDERED: Fluticasone Propionate Nasal 50 MCG/SPRAY BOTTLE NS PRN (18:24)
[2019-09-20] MEDS: Insulin LISPRO 300 UNITS/3 ML VIAL SQ SCH ×2 (18:41→22:22)
[2019-09-20] MEDS: Pantoprazole 40 MG VIAL IVP SCH (18:42)
[2019-09-20 18:57] LABS: Albumin 3.2 g/dL (3.5-5.7); Albumin/Globulin Ratio 1.4 (1.1-2.2); Bilirubin,Direct 0.3 mg/dL (0.0-0.2); Bilirubin,Indirect 0.4 mg/dL (0.0-1.0); Bilirubin,Total 0.7 mg/dL (0.3-1.0); Globulin 2.3 g/dL (2.4-3.5); Total Protein 5.5 g/dL (6.4-8.9)
[2019-09-20] MEDS: Melatonin 3 MG TABLET PO SCH (22:26)
[2019-09-20] MEDS ORDERED: 0.9 % Sodium Chloride 500 ML ONE (23:10)
[2019-09-20 23:29] LABS: Bilirubin,Urine Negative (Negative); Blood,Urine Negative (Negative); Clarity,Urine Clear (Clear); Color,Urine Yellow (Yellow); Glucose,Urine (UA) Normal (Normal); Ketones,Urine Negative (Negative); Leukocyte Esterase,Urine Negative (Negative); Nitrite,Urine Negative (Negative); Protein,Urine Negative (Neg-Trace); Specific Gravity,Urine 1.011 (1.010-1.025); Urobilinogen,Urine Normal (Normal)
[2019-09-21] MEDS ORDERED: *HR* OxyCODONE/APAP 10/325 TABLET PO ONE (00:09)
[2019-09-21 03:41] LABS: Calcium 8.2 mg/dL (8.6-10.3); Potassium 5.2 mEq/L (3.5-5.1)
[2019-09-21 04:26] LABS: Creatinine,Urine 24 mg/dL
[2019-09-21] MEDS: Pantoprazole 40 MG VIAL IVP SCH ×2 (06:12→18:46)
[2019-09-21 06:56] LABS: Hematocrit 24.3 % (35.3-44.9)
[2019-09-21 06:58] LABS: Immature Platelets 2.7 % (1.1-6.1); Mean Corpuscular HGB Conc 32.9 g/dL (31.6-35.5); Mean Corpuscular Hemoglobin 32.3 pg (28.0-33.3); Mean Platelet Volume 11.1 fL (9.4-12.4); Red Blood Count 2.48 M/mcL (3.82-4.97); White Blood Count 3.2 K/mcL (4.3-11.1)
[2019-09-21] MEDS: Insulin LISPRO 300 UNITS/3 ML VIAL SQ SCH ×4 (07:21→21:13)
[2019-09-21] MEDS ORDERED: Calcium Gluconate 1gm/50mL 1 GM/50 ML BAG IVPB ONE (08:28)
[2019-09-21 12:13] LABS: Hematocrit 25.1 % (35.3-44.9); Hemoglobin 7.9 g/dL (11.5-15.4)
[2019-09-21] MEDS: Nitroglycerin 1 INCH/GM PACKET TP SCH (12:23)
[2019-09-21 12:45] LABS: Albumin 3.1 g/dL (3.5-5.7); Albumin/Globulin Ratio 1.4 (1.1-2.2); Bilirubin,Direct 0.3 mg/dL (0.0-0.2); Bilirubin,Indirect 0.4 mg/dL (0.0-1.0); Bilirubin,Total 0.7 mg/dL (0.3-1.0); Globulin 2.2 g/dL (2.4-3.5); Total Protein 5.3 g/dL (6.4-8.9)
[2019-09-21 13:50] LABS: % Iron Saturation 36 % (15-50); Iron 135 mcg/dL (50-170); Transferrin 271 mg/dL (203-362)
[2019-09-21 13:51] LABS: Ferritin 300 ng/mL (10-120)
[2019-09-21] MEDS ORDERED: *HR* Propofol 200 MG/20 ML VIAL IVP ONE (14:18)
[2019-09-21 14:51] LABS: Hepatitis B Surface Antigen Nonreactive (Nonreactive)
[2019-09-21 15:22] LABS: Hepatitis B Core IgM Nonreactive (Nonreactive)
[2019-09-21 15:25] LABS: Hepatitis A Antibody IgM Nonreactive (Nonreactive)
[2019-09-21 15:26] LABS: Hepatitis C Virus Antibody Nonreactive (Nonreactive)
[2019-09-21] MEDS: 0.9 % Sodium Chloride 1,000 ML IVC SCH (15:42)
[2019-09-21 16:52] LABS: ABG Base Excess -4 mEq/L (-2 to 3); ABG HCO3 21 mEq/L (21-27); ABG Oxygen Saturation 98 % (95-98); ABG PCO2 36 mmHg (35-45); ABG PH 7.37 pH Units (7.32-7.45); ABG PO2 104 mmHg (85-104); ABG TCO2 22 mEq/L (20-26)
[2019-09-21] MEDS ORDERED: SODIUM CHLORIDE/NAHCO3/KCL/PEG 4,000 ML SOLN.RECON PO ONE (17:00)
[2019-09-21 18:48] LABS: Hematocrit 25.5 % (35.3-44.9); Hemoglobin 8.2 g/dL (11.5-15.4)
[2019-09-21] MEDS: Melatonin 3 MG TABLET PO SCH (21:45)
[2019-09-22 00:35] LABS: Monocytes % 9.3 %
[2019-09-22 00:36] LABS: Basophils % 0.3 %; Eosinophils # 0.2 K/mcL (0.0-0.6); Eosinophils % 5.2 %; Hematocrit 27.4 % (35.3-44.9); Hemoglobin 8.7 g/dL (11.5-15.4); Immature Granulocytes % 0.5 % (0-4); Immature Platelets 2.9 % (1.1-6.1); Lymphocytes # 0.5 K/mcL (0.6-4.6); Lymphocytes % 11.6 %; Mean Corpuscular HGB Conc 31.8 g/dL (31.6-35.5); Mean Corpuscular Hemoglobin 32.2 pg (28.0-33.3); Mean Corpuscular Volume 101.5 fL (83.0-100.0); Mean Platelet Volume 11.1 fL (9.4-12.4); Monocytes # 0.4 K/mcL (0.0-1.3); Neutrophils # 2.9 K/mcL (1.6-8.9); Red Cell Distribution Width 19.1 % (11.5-14.5); Segmented Neutrophils % 73.1 %; White Blood Count 3.9 K/mcL (4.3-11.1)
[2019-09-22 00:38] LABS: Platelet Count 90 K/mcL (140-400)
[2019-09-22 00:54] LABS: Calcium 8.7 mg/dL (8.6-10.3); Potassium 4.5 mEq/L (3.5-5.1)
[2019-09-22 01:20] LABS: Platelet Estimate Decreased (Normal)
[2019-09-22] MEDS: Pantoprazole 40 MG VIAL IVP SCH (05:59)
[2019-09-22] MEDS: Nitroglycerin 1 INCH/GM PACKET TP SCH (06:00)
[2019-09-22] MEDS: Insulin LISPRO 300 UNITS/3 ML VIAL SQ SCH ×4 (07:27→21:09)
[2019-09-22] MEDS ORDERED: Nitroglycerin 0.4 MG TAB.SUBL SL PRN (11:44)
[2019-09-22] MEDS: 0.9 % Sodium Chloride 1,000 ML IVC SCH (12:19)
[2019-09-22] MEDS: Metoprolol XL (24 HR) Succ 25 MG TAB.ER.24H PO SCH (12:21)
[2019-09-22] MEDS: Isosorbide MONOnitrate (24 HR) 30 MG TAB.ER.24H PO SCH (12:21)
[2019-09-22] MEDS ORDERED: *HR* Propofol 200 MG/20 ML VIAL IVP ONE (12:55)
[2019-09-22] MEDS: *HR* OxyCODONE/APAP 5/325 TABLET PO PRN (15:33)
[2019-09-22] MEDS: Melatonin 3 MG TABLET PO SCH (20:26)
[2019-09-23 05:05] LABS: Basophils % 0.2 %; Immature Granulocytes % 0.4 % (0-4); Lymphocytes % 9.6 %
[2019-09-23 05:06] LABS: Eosinophils # 0.1 K/mcL (0.0-0.6); Eosinophils % 2.8 %; Hematocrit 23.7 % (35.3-44.9); Hemoglobin 7.9 g/dL (11.5-15.4); Immature Platelets 2.3 % (1.1-6.1); Lymphocytes # 0.5 K/mcL (0.6-4.6); Mean Corpuscular HGB Conc 33.3 g/dL (31.6-35.5); Mean Corpuscular Hemoglobin 32.8 pg (28.0-33.3); Mean Corpuscular Volume 98.3 fL (83.0-100.0); Mean Platelet Volume 10.5 fL (9.4-12.4); Monocytes # 0.6 K/mcL (0.0-1.3); Monocytes % 12.6 %; Neutrophils # 3.7 K/mcL (1.6-8.9); Red Blood Count 2.41 M/mcL (3.82-4.97); Segmented Neutrophils % 74.4 %; White Blood Count 4.9 K/mcL (4.3-11.1)
[2019-09-23 05:08] LABS: Platelet Count 83 K/mcL (140-400)
[2019-09-23 05:09] LABS: Platelet Estimate Decreased (Normal)
[2019-09-23 05:24] LABS: Calcium 8.2 mg/dL (8.6-10.3); Potassium 4.5 mEq/L (3.5-5.1)
[2019-09-23 05:25] LABS: Albumin 2.9 g/dL (3.5-5.7); Albumin/Globulin Ratio 1.3 (1.1-2.2); Bilirubin,Direct 0.4 mg/dL (0.0-0.2); Bilirubin,Indirect 0.4 mg/dL (0.0-1.0); Bilirubin,Total 0.8 mg/dL (0.3-1.0); Globulin 2.3 g/dL (2.4-3.5); Total Protein 5.2 g/dL (6.4-8.9)
[2019-09-23] MEDS: Insulin LISPRO 300 UNITS/3 ML VIAL SQ SCH ×4 (07:50→22:04)
[2019-09-23] MEDS: Isosorbide MONOnitrate (24 HR) 30 MG TAB.ER.24H PO SCH (08:35)
[2019-09-23] MEDS: Metoprolol XL (24 HR) Succ 25 MG TAB.ER.24H PO SCH (08:35)
[2019-09-23] MEDS: 0.9 % Sodium Chloride 1,000 ML IVC SCH (08:37)
[2019-09-23] MEDS: *HR* OxyCODONE/APAP 5/325 TABLET PO PRN ×2 (08:50→22:04)
[2019-09-23 10:09] LABS: ANA IgG by ELISA NONE DETECTED (None Detected); F-Actin (sm muscle) Ab IgG 4 Units (0-19); Immunoglobulin A (CELIAC) 255 mg/dL (68-408); Immunoglobulin G Subclass 1 423 mg/dL (240-1118); Immunoglobulin G Subclass 2 121 mg/dL (124-549); Immunoglobulin G Subclass 3 47 mg/dL (21-134); Immunoglobulin G Subclass 4 22 mg/dL (1-123); Serine Protease-3 Antibody 0 AU/mL (0-19)
[2019-09-23 10:35] LABS: Hematocrit 23.9 % (35.3-44.9); Hemoglobin 7.4 g/dL (11.5-15.4)
[2019-09-23 14:51] LABS: Hematocrit 26.2 % (35.3-44.9); Hemoglobin 8.3 g/dL (11.5-15.4); Mean Corpuscular HGB Conc 31.7 g/dL (31.6-35.5); Mean Corpuscular Hemoglobin 31.7 pg (28.0-33.3); Mean Platelet Volume 10.9 fL (9.4-12.4); Platelet Count 94 K/mcL (140-400); Red Blood Count 2.62 M/mcL (3.82-4.97); Red Cell Distribution Width 18.1 % (11.5-14.5); White Blood Count 4.3 K/mcL (4.3-11.1)
[2019-09-23] MEDS: Melatonin 3 MG TABLET PO SCH (22:03)
[2019-09-24] MEDS: *HR* OxyCODONE/APAP 5/325 TABLET PO PRN (04:37)
[2019-09-24 05:32] LABS: Hematocrit 23.9 % (35.3-44.9); Hemoglobin 7.7 g/dL (11.5-15.4); Mean Corpuscular HGB Conc 32.2 g/dL (31.6-35.5); Mean Corpuscular Hemoglobin 32.1 pg (28.0-33.3); Mean Corpuscular Volume 99.6 fL (83.0-100.0); Red Blood Count 2.4 M/mcL (3.82-4.97)
[2019-09-24 05:34] LABS: Immature Platelets 2.9 % (1.1-6.1); Mean Platelet Volume 11.2 fL (9.4-12.4); Red Cell Distribution Width 17.8 % (11.5-14.5); White Blood Count 3.4 K/mcL (4.3-11.1)
[2019-09-24 05:50] LABS: Calcium 8.2 mg/dL (8.6-10.3); Potassium 4.4 mEq/L (3.5-5.1)
[2019-09-24] MEDS: Insulin LISPRO 300 UNITS/3 ML VIAL SQ SCH ×2 (07:50→11:40)
[2019-09-24] MEDS: Isosorbide MONOnitrate (24 HR) 30 MG TAB.ER.24H PO SCH (08:19)
[2019-09-24] MEDS: Metoprolol XL (24 HR) Succ 25 MG TAB.ER.24H PO SCH (08:19)
[2019-09-24] MEDS ORDERED: 0.9 % Sodium Chloride 500 ML ONE (09:07)
[2019-09-24 09:17] LABS: Tissue Transglutaminase IgA 1 U/mL (0-3)
[2019-09-24] MEDS ORDERED: Furosemide 20 MG TABLET PO SCH (10:45)
[2019-09-24 12:55] VITALS: BP 111/54
[2019-09-24 22:27] LABS: A1A SZ Specimen WHOLE BLOOD; Alpha-1-Antitrypsin S Allele NEGATIVE; Alpha-1-Antitrypsin Z Allele NEGATIVE
[2019-09-25 07:43] LABS: Alpha-1-Antitrypsin 178 mg/dL (90-200)
== END 2019-09-24 15:20 | disposition home health service (06) | DRG 291 ==
LOC: EMEROOARM 14:34 → 2ANU 14:34 → SUATTDRO 16:12 → 2ANU 16:58
PROVIDERS: ADMIT Student in an Organized Health Care Education/Training Program; ATTEND Internal Medicine

== ENCOUNTER 2020-02-13 13:26 | Observation (INO) ==
[2020-02-13 14:05] LABS: Basophils % 0.4 %; Eosinophils # 0.3 K/mcL (0.0-0.6); Eosinophils % 4.5 %; Hematocrit 35.5 % (35.3-44.9); Hemoglobin 11.2 g/dL (11.5-15.4); Immature Granulocytes % 0.5 % (0-4); Lymphocytes # 0.6 K/mcL (0.6-4.6); Lymphocytes % 11.6 %; Mean Corpuscular HGB Conc 31.5 g/dL (31.6-35.5); Mean Corpuscular Hemoglobin 30.7 pg (28.0-33.3); Mean Corpuscular Volume 97.3 fL (83.0-100.0); Mean Platelet Volume 11.1 fL (9.4-12.4); Monocytes # 0.6 K/mcL (0.0-1.3); Monocytes % 10.7 %; Platelet Count 128 K/mcL (140-400); Red Blood Count 3.65 M/mcL (3.82-4.97); Red Cell Distribution Width 12.3 % (11.5-14.5); Segmented Neutrophils % 72.3 %; White Blood Count 5.5 K/mcL (4.3-11.1)
[2020-02-13] MEDS ORDERED: Isovue-370 500 ML BOTTLE IVP ONE (14:23)
[2020-02-13 14:26] LABS: Alanine Aminotransferase 22 Units/L (7-52); Albumin 3.5 g/dL (3.5-5.7); Albumin/Globulin Ratio 1.2 (1.1-2.2); Alkaline Phosphatase 73 Units/L (34-104); Aspartate Amino Transferase 32 Units/L (13-39); BUN/Creatinine Ratio 22 (6-26); Bilirubin,Total 1.1 mg/dL (0.3-1.0); Blood Urea Nitrogen 51 mg/dL (8-23); Calcium 9.1 mg/dL (8.6-10.3); Carbon Dioxide 26 mEq/L (23-29); Chloride 103 mEq/L (98-107); Globulin 2.9 g/dL (2.4-3.5); Glucose 230 mg/dL (70-105); Osmolality,Calculated 311 (280-300); Potassium 3.8 mEq/L (3.5-5.1); Sodium 140 mEq/L (136-145); Total Protein 6.4 g/dL (6.4-8.9); Troponin I < 0.03 ng/mL (< 0.04); eGFR For African Americans 25 (> 60); eGFR For Non-African Americans 21 (> 60)
[2020-02-13] MEDS ORDERED: *HR* Promethazine 25 MG/ML VIAL IVP PRN (15:45)
[2020-02-13] MEDS ORDERED: Ondansetron 4 MG/2 ML VIAL IVP PRN (15:45)
[2020-02-13] MEDS ORDERED: Mag Hydrox/Al Hydrox/Simeth 30 ML UDC PO PRN (15:45)
[2020-02-13] MEDS ORDERED: MOM Conc 10 ML UD.LIQ PO PRN (15:45)
[2020-02-13] MEDS ORDERED: Acetaminophen 325 MG TABLET PO PRN (15:45)
[2020-02-13] MEDS ORDERED: Naloxone 0.4 MG/ML INJ IVP PRN (15:45)
[2020-02-13] MEDS ORDERED: Dextrose Gel 15 GM/37.5 ML TUBE PO PRN ×2 (15:50)
[2020-02-13] MEDS ORDERED: D5% in Water 1,000 ML IVC PRN (15:50)
[2020-02-13] MEDS ORDERED: *HR* Dextrose 50 % in Water (Syg) 50 ML SYRINGE IVP PRN (15:50)
[2020-02-13] MEDS: *HR* Heparin 5,000 UNIT/ML VIAL SQ SCH (18:53)
[2020-02-13] MEDS: Aspirin Enteric Coated 81 MG Tablet PO SCH (18:53)
[2020-02-13] MEDS: Insulin LISPRO 300 UNITS/3 ML VIAL SQ SCH (18:54)
[2020-02-13] MEDS ORDERED: Insulin LISPRO 300 UNITS/3 ML VIAL SQ SCH (21:00)
[2020-02-14 02:16] LABS: Basophils % 0.5 %; Eosinophils # 0.2 K/mcL (0.0-0.6); Eosinophils % 4.2 %; Hematocrit 30.9 % (35.3-44.9); Hemoglobin 10.3 g/dL (11.5-15.4); Immature Granulocytes % 0.5 % (0-4); Lymphocytes # 0.7 K/mcL (0.6-4.6); Lymphocytes % 16.7 %; Mean Corpuscular HGB Conc 33.3 g/dL (31.6-35.5); Mean Corpuscular Hemoglobin 31.8 pg (28.0-33.3); Mean Corpuscular Volume 95.4 fL (83.0-100.0); Mean Platelet Volume 11.3 fL (9.4-12.4); Monocytes # 0.4 K/mcL (0.0-1.3); Monocytes % 8.5 %; Platelet Count 126 K/mcL (140-400); Red Blood Count 3.24 M/mcL (3.82-4.97); Red Cell Distribution Width 12.4 % (11.5-14.5); Segmented Neutrophils % 69.6 %; White Blood Count 4.2 K/mcL (4.3-11.1)
[2020-02-14 02:29] LABS: Calcium 8.8 mg/dL (8.6-10.3); Potassium 3.7 mEq/L (3.5-5.1)
[2020-02-14] MEDS: *HR* Heparin 5,000 UNIT/ML VIAL SQ SCH (05:31)
[2020-02-14 06:18] VITALS: BP 128/58
[2020-02-14] MEDS ORDERED: Fluticasone Propionate Nasal 50 MCG/SPRAY BOTTLE NS PRN (07:46)
[2020-02-14] MEDS ORDERED: Nitroglycerin 0.4 MG TAB.SUBL SL PRN (07:46)
[2020-02-14] MEDS ORDERED: Melatonin 3 MG TABLET PO PRN (07:46)
[2020-02-14] MEDS ORDERED: hydrOXYzine pamoate 25 MG CAPSULE PO PRN (07:46)
[2020-02-14] MEDS: Aspirin Enteric Coated 81 MG Tablet PO SCH (08:20)
[2020-02-14] MEDS: Insulin LISPRO 300 UNITS/3 ML VIAL SQ SCH (08:26)
[2020-02-14] MEDS ORDERED: Metoprolol XL (24 HR) Succ 25 MG TAB.ER.24H PO SCH (09:00)
[2020-02-14] MEDS ORDERED: Furosemide 40 MG TABLET PO SCH (09:00)
[2020-02-14] MEDS ORDERED: Aspirin Enteric Coated 81 MG Tablet PO SCH (09:00)
[2020-02-14] MEDS ORDERED: Fenofibrate 54 MG TABLET PO SCH (09:00)
[2020-02-14] MEDS ORDERED: Cyanocobalamin (B-12) 1,000 MCG TABLET PO SCH (09:00)
[2020-02-14] MEDS ORDERED: Ascorbic Acid 500 MG TABLET PO SCH (09:00)
[2020-02-14] MEDS ORDERED: Cholecalciferol (D-3) 1,000 UNIT (25MCG) TABLET PO SCH (09:00)
[2020-02-14] MEDS ORDERED: lisinopriL 20 MG TABLET PO SCH (09:00)
== END 2020-02-14 10:15 | disposition home or self-care (01) ==
LOC: 3ANU 13:26 → EMEROOARM 13:26 → 3ANU 16:47
PROVIDERS: ADMIT Internal Medicine; ATTEND Internal Medicine

== ENCOUNTER 2020-10-21 02:23 | Inpatient (IN) ==
[2020-10-21] MEDS ORDERED: Morphine Sulfate 2 MG/ML SYRINGE IVP ONE (02:31)
[2020-10-21] MEDS ORDERED: 0.9 % Sodium Chloride 1,000 ML IVC ONE (02:32)
[2020-10-21] MEDS ORDERED: Ondansetron 4 MG/2 ML VIAL IVP ONE (02:34)
[2020-10-21] MEDS ORDERED: 0.9 % Sodium Chloride 500 ML IVC ONE (02:42)
[2020-10-21 02:56] LABS: Basophils % 0.1 %; Eosinophils # 0.2 K/mcL (0.0-0.6); Eosinophils % 1.8 %; Hemoglobin 10.2 g/dL (11.5-15.4); Immature Granulocytes % 0.8 % (0-4); Lymphocytes # 0.7 K/mcL (0.6-4.6); Lymphocytes % 7.9 %; Mean Corpuscular HGB Conc 31.9 g/dL (31.6-35.5); Mean Corpuscular Hemoglobin 31.5 pg (28.0-33.3); Mean Corpuscular Volume 98.8 fL (83.0-100.0); Mean Platelet Volume 11.2 fL (9.4-12.4); Monocytes % 11.7 %; Neutrophils # 6.7 K/mcL (1.6-8.9); Platelet Count 106 K/mcL (140-400); Red Blood Count 3.24 M/mcL (3.82-4.97); Red Cell Distribution Width 14.5 % (11.5-14.5); Segmented Neutrophils % 77.7 %; White Blood Count 8.6 K/mcL (4.3-11.1)
[2020-10-21 03:18] LABS: Calcium 8.3 mg/dL (8.6-10.3); Potassium 3.5 mEq/L (3.5-5.1)
[2020-10-21] MEDS ORDERED: *HR* HYDROmorphone (PF) 1 MG/ML SYRINGE IVP ONE ×3 (04:10→06:23)
[2020-10-21 04:39] LABS: Bilirubin,Urine Negative (Negative); Blood,Urine Negative (Negative); Clarity,Urine Clear (Clear); Color,Urine Yellow (Yellow); Glucose,Urine (UA) Normal (Normal); Ketones,Urine Negative (Negative); Leukocyte Esterase,Urine Negative (Negative); Nitrite,Urine Negative (Negative); PH,Urine 5.5 pH Units (5.0-8.0); Protein,Urine Negative (Neg-Trace); Specific Gravity,Urine 1.021 (1.010-1.025); Urobilinogen,Urine Normal (Normal)
[2020-10-21] MEDS ORDERED: Ondansetron 4 MG/2 ML VIAL IVP PRN ×3 (05:37→12:55)
[2020-10-21] MEDS ORDERED: Naloxone 0.4 MG/ML INJ IVP PRN ×3 (05:37→12:55)
[2020-10-21] MEDS ORDERED: *HR* Promethazine 25 MG/ML VIAL IM PRN ×2 (05:37→12:55)
[2020-10-21] MEDS ORDERED: Ringers Solution, Lactated 1,000 ML IVC SCH (05:45)
[2020-10-21 07:17] LABS: Adenovirus Not Detected (Not Detect); Bordetella Pertussis Not Detected (Not Detect); Chlamydophila pneumoniae Not Detected (Not Detect); Coronavirus 229E Not Detected (Not Detect); Coronavirus HKU1 Not Detected (Not Detect); Coronavirus NL63 Not Detected (Not Detect); Coronavirus OC43 Not Detected (Not Detect); Human Metapneumovirus Not Detected (Not Detect); Human Rhinovirus/Enterovirus Not Detected (Not Detect); Influenza A Subtype 2009 H1 Not Detected (Not Detect); Influenza B Not Detected (Not Detect); Mycoplasma pneumoniae Not Detected (Not Detect); Parainfluenza Virus 1 Not Detected (Not Detect); Parainfluenza Virus 2 Not Detected (Not Detect); Parainfluenza Virus 3 Not Detected (Not Detect); Parainfluenza Virus 4 Not Detected (Not Detect); Respiratory Syncytial Virus Not Detected (Not Detect); SARS-CoV-2 Not Detected (Not Detect)
[2020-10-21] MEDS ORDERED: Aspirin Enteric Coated 81 MG Tablet PO SCH (09:00)
[2020-10-21] MEDS ORDERED: Metoprolol XL (24 HR) Succ 25 MG TAB.ER.24H PO SCH (09:00)
[2020-10-21] MEDS ORDERED: *HR* HYDROmorphone (PF) 1 MG/ML SYRINGE IVP PRN (09:09)
[2020-10-21] MEDS ORDERED: *HR* Metoprolol 5 MG/5 ML VIAL IVP PRN (11:14)
[2020-10-21] MEDS ORDERED: *HR* FentaNYL (PF) 100 MCG/2 ML VIAL IVP PRN (11:14)
[2020-10-21] MEDS ORDERED: Ondansetron 4 MG/2 ML VIAL ONE (11:31)
[2020-10-21] MEDS ORDERED: *HR* FentaNYL (PF) 100 MCG/2 ML VIAL ONE (11:31)
[2020-10-21] MEDS ORDERED: *HR* Propofol 200 MG/20 ML VIAL IVP ONE (11:31)
[2020-10-21] MEDS ORDERED: Dexamethasone 4 MG/ML VIAL ONE (11:31)
[2020-10-21] MEDS ORDERED: Lidocaine -MPF 2% 2 ML VIAL ONE (11:31)
[2020-10-21] MEDS ORDERED: Isovue-300 50ML VIAL ONE (11:35)
[2020-10-21] MEDS ORDERED: Melatonin 3 MG TABLET PO PRN ×2 (12:32→12:55)
[2020-10-21] MEDS ORDERED: Acetaminophen 325 MG TABLET PO PRN (12:39)
[2020-10-21] MEDS ORDERED: *HR* OxyCODONE Immed Rel 5 MG TABLET PO PRN ×2 (12:39→12:40)
[2020-10-21] MEDS ORDERED: *HR* Belladonna Alkaloids/Opium 30 MG RECTAL SUPPOSITORY RC PRN (12:55)
[2020-10-21] MEDS ORDERED: Nitroglycerin 0.4 MG TAB.SUBL SL PRN (12:55)
[2020-10-21] MEDS ORDERED: hydrOXYzine pamoate 25 MG CAPSULE PO PRN (12:55)
[2020-10-21] MEDS: Ringers Solution, Lactated 1,000 ML IVC SCH (13:07)
[2020-10-21] MEDS: *HR* HYDROmorphone (PF) 1 MG/ML SYRINGE IVP PRN ×4 (13:15→22:25)
[2020-10-21] MEDS: *HR* Heparin 5,000 UNIT/ML VIAL SQ SCH ×2 (13:16→21:05)
[2020-10-21] MEDS ORDERED: *HR* Heparin 5,000 UNIT/ML VIAL SQ SCH (14:00)
[2020-10-22] MEDS: *HR* HYDROmorphone (PF) 1 MG/ML SYRINGE IVP PRN ×6 (01:03→18:25)
[2020-10-22] MEDS: Ringers Solution, Lactated 1,000 ML IVC SCH (01:06)
[2020-10-22] MEDS ORDERED: Isovue-370 500 ML BOTTLE IVP ONE (04:30)
[2020-10-22] MEDS ORDERED: *HR* FentaNYL (PF) 100 MCG/2 ML VIAL IVP ONE (04:48)
[2020-10-22 05:27] LABS: Basophils % 0.1 %; Eosinophils % 0.1 %; Hemoglobin 10.1 g/dL (11.5-15.4); Immature Granulocytes % 0.6 % (0-4); Lymphocytes # 0.3 K/mcL (0.6-4.6); Lymphocytes % 2.3 %; Mean Corpuscular HGB Conc 30.6 g/dL (31.6-35.5); Mean Corpuscular Hemoglobin 30.5 pg (28.0-33.3); Mean Corpuscular Volume 99.7 fL (83.0-100.0); Monocytes # 1.3 K/mcL (0.0-1.3); Monocytes % 9.5 %; Neutrophils # 12.2 K/mcL (1.6-8.9); Platelet Count 116 K/mcL (140-400); Red Blood Count 3.31 M/mcL (3.82-4.97); Red Cell Distribution Width 14.7 % (11.5-14.5); Segmented Neutrophils % 87.4 %
[2020-10-22 05:32] LABS: Calcium 8.5 mg/dL (8.6-10.3); Potassium 4.6 mEq/L (3.5-5.1)
[2020-10-22] MEDS: *HR* Heparin 5,000 UNIT/ML VIAL SQ SCH ×3 (06:24→21:38)
[2020-10-22] MEDS: Metoprolol XL (24 HR) Succ 25 MG TAB.ER.24H PO SCH (08:45)
[2020-10-22] MEDS: Aspirin Enteric Coated 81 MG Tablet PO SCH (08:45)
[2020-10-22] MEDS: Fenofibrate 54 MG TABLET PO SCH (08:45)
[2020-10-22] MEDS ORDERED: Cholecalciferol (D-3) 1,000 UNIT (25MCG) TABLET PO SCH (09:00)
[2020-10-22] MEDS ORDERED: Fenofibrate 54 MG TABLET PO SCH (09:00)
[2020-10-22] MEDS ORDERED: Ascorbic Acid 500 MG TABLET PO SCH (09:00)
[2020-10-22] MEDS ORDERED: Furosemide 40 MG TABLET PO SCH (09:00)
[2020-10-22] MEDS ORDERED: Cyanocobalamin (B-12) 1,000 MCG TABLET PO SCH (09:00)
[2020-10-22] MEDS ORDERED: lisinopriL 20 MG TABLET PO SCH ×2 (09:00)
[2020-10-22] MEDS ORDERED: Acetaminophen 325 MG TABLET PO PRN (18:26)
[2020-10-22] MEDS ORDERED: *HR* OxyCODONE Immed Rel 5 MG TABLET PO PRN (18:26)
[2020-10-22] MEDS: *HR* OxyCODONE Immed Rel 5 MG TABLET PO PRN (21:40)
[2020-10-23] MEDS: *HR* OxyCODONE Immed Rel 5 MG TABLET PO PRN ×3 (04:59→20:59)
[2020-10-23] MEDS: *HR* Heparin 5,000 UNIT/ML VIAL SQ SCH ×3 (05:01→20:58)
[2020-10-23] MEDS: *HR* HYDROmorphone (PF) 1 MG/ML SYRINGE IVP PRN ×3 (06:25→13:46)
[2020-10-23] MEDS: Fenofibrate 54 MG TABLET PO SCH (09:10)
[2020-10-23] MEDS: Metoprolol XL (24 HR) Succ 25 MG TAB.ER.24H PO SCH (09:11)
[2020-10-23] MEDS: Aspirin Enteric Coated 81 MG Tablet PO SCH (09:12)
[2020-10-23 10:36] LABS: Basophils % 0.1 %; Eosinophils % 1.6 %; Hemoglobin 9.8 g/dL (11.5-15.4); Red Cell Distribution Width 14.2 % (11.5-14.5)
[2020-10-23 10:38] LABS: Eosinophils # 0.2 K/mcL (0.0-0.6); Hematocrit 31.5 % (35.3-44.9); Immature Granulocytes % 0.8 % (0-4); Immature Platelets 4.6 % (1.1-6.1); Lymphocytes # 0.4 K/mcL (0.6-4.6); Lymphocytes % 4.2 %; Mean Corpuscular HGB Conc 31.1 g/dL (31.6-35.5); Mean Corpuscular Hemoglobin 30.9 pg (28.0-33.3); Mean Corpuscular Volume 99.4 fL (83.0-100.0); Monocytes # 0.9 K/mcL (0.0-1.3); Monocytes % 10.2 %; Neutrophils # 7.6 K/mcL (1.6-8.9); Red Blood Count 3.17 M/mcL (3.82-4.97); Segmented Neutrophils % 83.1 %; White Blood Count 9.1 K/mcL (4.3-11.1)
[2020-10-23 10:42] LABS: Platelet Count 90 K/mcL (140-400)
[2020-10-23 11:03] LABS: Calcium 8.9 mg/dL (8.6-10.3)
[2020-10-23] MEDS: 0.9 % Sodium Chloride 1,000 ML IVC SCH (14:51)
[2020-10-24] MEDS: *HR* OxyCODONE Immed Rel 5 MG TABLET PO PRN (02:16)
[2020-10-24] MEDS: 0.9 % Sodium Chloride 1,000 ML IVC SCH (04:40)
[2020-10-24 05:22] LABS: Mean Corpuscular HGB Conc 30.8 g/dL (31.6-35.5); Mean Platelet Volume 10.6 fL (9.4-12.4); Red Cell Distribution Width 14.2 % (11.5-14.5)
[2020-10-24 05:24] LABS: Basophils % 0.1 %; Eosinophils # 0.2 K/mcL (0.0-0.6); Hematocrit 29.9 % (35.3-44.9); Hemoglobin 9.2 g/dL (11.5-15.4); Immature Granulocytes % 0.8 % (0-4); Immature Platelets 2.7 % (1.1-6.1); Lymphocytes # 0.4 K/mcL (0.6-4.6); Lymphocytes % 5.3 %; Mean Corpuscular Hemoglobin 31.1 pg (28.0-33.3); Monocytes # 0.9 K/mcL (0.0-1.3); Monocytes % 11.4 %; Red Blood Count 2.96 M/mcL (3.82-4.97); Segmented Neutrophils % 80.4 %; White Blood Count 7.9 K/mcL (4.3-11.1)
[2020-10-24 05:25] LABS: Neutrophils # 6.4 K/mcL (1.6-8.9); Platelet Count 90 K/mcL (140-400)
[2020-10-24 05:43] LABS: Calcium 8.3 mg/dL (8.6-10.3); Potassium 4.2 mEq/L (3.5-5.1)
[2020-10-24] MEDS: *HR* Heparin 5,000 UNIT/ML VIAL SQ SCH ×2 (06:37→11:18)
[2020-10-24] MEDS ORDERED: Orphenadrine 60 MG/2 ML VIAL IVP ONE (07:53)
[2020-10-24] MEDS ORDERED: *HR* Dextrose 50 % in Water (Vial) 50 ML VIAL IVP ONE (10:37)
[2020-10-24] MEDS: Aspirin Enteric Coated 81 MG Tablet PO SCH (11:17)
[2020-10-24] MEDS: Fenofibrate 54 MG TABLET PO SCH (11:18)
[2020-10-24] MEDS: Metoprolol XL (24 HR) Succ 25 MG TAB.ER.24H PO SCH (11:18)
[2020-10-24] MEDS ORDERED: *HR* Labetalol 20 MG/4 ML SYRINGE IVP PRN (13:38)
[2020-10-24 14:15] LABS: ABG Base Excess -4 mEq/L (-2 to 3); ABG HCO3 23 mEq/L (21-27); ABG Oxygen Saturation 96 % (95-98); ABG PCO2 47 mmHg (35-45); ABG PH 7.29 pH Units (7.32-7.45); ABG PO2 90 mmHg (85-104); ABG TCO2 24 mEq/L (20-26)
[2020-10-24] MEDS ORDERED: niCARdipine 20 MG/200 ML MLS IVC SCH (14:15)
[2020-10-24 14:31] VITALS: BP 102/60
== END 2020-10-24 14:50 | disposition other institution (70) | DRG 659 ==
LOC: SUATTDRO → EMEROOARM 02:23 → 3ANU 02:23 → SUATTDRO 07:31 → 3ANU 08:15 → SUATTDRO 10-23 15:27
PROVIDERS: ADMIT Family Medicine; ATTEND Internal Medicine

== ENCOUNTER 2020-11-06 12:40 | Inpatient (IN) ==
[2020-11-06 13:07] LABS: Hematocrit 28.2 % (35.3-44.9); Hemoglobin 8.7 g/dL (11.5-15.4); Mean Corpuscular HGB Conc 30.9 g/dL (31.6-35.5); Mean Corpuscular Volume 100.4 fL (83.0-100.0); Mean Platelet Volume 10.4 fL (9.4-12.4); Platelet Count 116 K/mcL (140-400); Red Blood Count 2.81 M/mcL (3.82-4.97); Red Cell Distribution Width 14.7 % (11.5-14.5); White Blood Count 6.2 K/mcL (4.3-11.1)
[2020-11-06 13:14] LABS: INR 1.3; Prothrombin Time 14.4 Seconds (9.4-12.1)
[2020-11-06 13:17] LABS: Activated Partial Thrombo Time 27.1 Seconds (26.0-36.0)
[2020-11-06 13:28] LABS: BUN/Creatinine Ratio 17 (6-26); Blood Urea Nitrogen 33 mg/dL (8-23); Calcium 8.7 mg/dL (8.6-10.3); Carbon Dioxide 25 mEq/L (23-29); Chloride 105 mEq/L (98-107); Ethanol < 10 mg/dL (Less than 10); Glucose 113 mg/dL (70-105); Osmolality,Calculated 296 (280-300); Potassium 4.3 mEq/L (3.5-5.1); Sodium 139 mEq/L (136-145); Troponin I < 0.03 ng/mL (< 0.04); eGFR For African Americans 31 (> 60); eGFR For Non-African Americans 26 (> 60)
[2020-11-06 14:24] LABS: Amorphous Sediment,Urine Few per hpf (None-Few); Bilirubin,Urine Negative (Negative); Blood,Urine Large (Negative); Budding Yeast,Urine Few per hpf (None Seen); Clarity,Urine Turbid (Clear); Color,Urine Light-Orange (Yellow); Glucose,Urine (UA) Normal (Normal); Ketones,Urine Negative (Negative); Leukocyte Esterase,Urine Small (Negative); Nitrite,Urine Negative (Negative); Protein,Urine 30 mg/dL (Neg-Trace); RBC,Urine TNTC per hpf (0-3); Specific Gravity,Urine 1.009 (1.010-1.025); Squamous Epithelial Cell,Urine Few per hpf (None-Few); Urobilinogen,Urine Normal (Normal)
[2020-11-06] MEDS ORDERED: cefTRIAXone 1,000 MG in 0.9 % Sodium Chloride Mini Bag 100 ML IVPB ONE (14:25)
[2020-11-06 14:35] LABS: Amphetamine Screen,Urine Negative ng/mL (Cutoff=1000); Barbiturate Screen,Urine Negative ng/mL (Cutoff=200); Benzodiazepines Screen,Urine Negative ng/mL (Cutoff=200); Cannabinoid Screen,Urine Negative ng/mL (Cutoff = 50); Cocaine Screen,Urine Negative ng/mL (Cutoff= 300); Opiate Screen,Urine Negative ng/mL (Cutoff=300); Phencyclidine Screen,Urine Negative ng/mL (Cutoff=25)
[2020-11-06] MEDS ORDERED: Ondansetron 4 MG/2 ML VIAL IVP PRN (14:48)
[2020-11-06] MEDS ORDERED: Naloxone 0.4 MG/ML INJ IVP PRN (14:48)
[2020-11-06] MEDS ORDERED: Acetaminophen 325 MG TABLET PO PRN (14:48)
[2020-11-06 15:50] LABS: Albumin 2.9 g/dL (3.5-5.7); Albumin/Globulin Ratio 0.8 (1.1-2.2); Bilirubin,Direct 0.3 mg/dL (0.0-0.2); Bilirubin,Indirect 0.4 mg/dL (0.0-1.0); Bilirubin,Total 0.7 mg/dL (0.3-1.0); Globulin 3.6 g/dL (2.4-3.5); Total Protein 6.5 g/dL (6.4-8.9)
[2020-11-06 15:59] LABS: Thyroid Stimulating Hormone 3.963 mcIU/mL (0.340-5.600)
[2020-11-06] MEDS ORDERED: Perflutren Lipid Microsphere 1.3 ML in 0.9 % Sodium Chloride 8.7 ML IVP PRN (16:09)
[2020-11-06] MEDS ORDERED: *HR* Dextrose 50 % in Water (Vial) 50 ML VIAL IVP PRN (16:14)
[2020-11-06] MEDS ORDERED: D5% in Water 1,000 ML IVC PRN (16:14)
[2020-11-06] MEDS ORDERED: Dextrose Gel 15 GM/37.5 ML TUBE PO PRN ×2 (16:14)
[2020-11-06] MEDS: Insulin LISPRO 300 UNITS/3 ML VIAL SUBQ SCH ×2 (17:14→21:40)
[2020-11-06] MEDS: Cefepime HCl 1,000 MG in 0.9 % Sodium Chloride Mini Bag 100 ML IVPB SCH (17:36)
[2020-11-07 04:44] LABS: Basophils % 0.7 %; Hemoglobin 7.9 g/dL (11.5-15.4); Red Cell Distribution Width 15.1 % (11.5-14.5)
[2020-11-07 04:46] LABS: Eosinophils # 0.3 K/mcL (0.0-0.6); Eosinophils % 4.8 %; Hematocrit 25.4 % (35.3-44.9); Immature Granulocytes % 0.3 % (0-4); Immature Platelets 3.1 % (1.1-6.1); Lymphocytes # 0.7 K/mcL (0.6-4.6); Lymphocytes % 12.3 %; Mean Corpuscular HGB Conc 31.1 g/dL (31.6-35.5); Mean Corpuscular Hemoglobin 31.1 pg (28.0-33.3); Mean Platelet Volume 11.2 fL (9.4-12.4); Monocytes # 0.4 K/mcL (0.0-1.3); Monocytes % 6.9 %; Red Blood Count 2.54 M/mcL (3.82-4.97); White Blood Count 5.8 K/mcL (4.3-11.1)
[2020-11-07 04:50] LABS: Neutrophils # 4.4 K/mcL (1.6-8.9); Platelet Count 98 K/mcL (140-400)
[2020-11-07 05:02] LABS: Chol/HDL Ratio 2.8 (0-4.9)
[2020-11-07 05:05] LABS: Calcium 8.2 mg/dL (8.6-10.3); Magnesium 1.7 mg/dL (1.6-2.6); Potassium 4.2 mEq/L (3.5-5.1)
[2020-11-07 05:26] LABS: Folate 13.3 ng/mL (3.0-16.0)
[2020-11-07 05:28] LABS: Vitamin B12 > 1500 pg/mL (250-1100)
[2020-11-07] MEDS: Cefepime HCl 1,000 MG in 0.9 % Sodium Chloride Mini Bag 100 ML IVPB SCH (05:33)
[2020-11-07] MEDS ORDERED: *HR* LORazepam 2 MG/ML VIAL IVP ONE ×2 (05:58→16:15)
[2020-11-07] MEDS ORDERED: Ringers Solution, Lactated 1,000 ML IVC ONE (06:01)
[2020-11-07] MEDS ORDERED: Ringers Solution, Lactated 1,000 ML ONE (06:05)
[2020-11-07 06:27] LABS: Albumin 2.6 g/dL (3.5-5.7); Albumin/Globulin Ratio 0.8 (1.1-2.2); Bilirubin,Direct 0.2 mg/dL (0.0-0.2); Bilirubin,Indirect 0.4 mg/dL (0.0-1.0); Bilirubin,Total 0.6 mg/dL (0.3-1.0); Globulin 3.2 g/dL (2.4-3.5); Total Protein 5.8 g/dL (6.4-8.9)
[2020-11-07] MEDS: Insulin LISPRO 300 UNITS/3 ML VIAL SUBQ SCH ×4 (08:00→21:33)
[2020-11-07] MEDS ORDERED: 0.9 % Sodium Chloride 1,000 ML IVC SCH (08:00)
[2020-11-07 09:10] LABS: ABG Base Excess 1 mEq/L (-2 to 3); ABG HCO3 26 mEq/L (21-27); ABG Oxygen Saturation 90 % (95-98); ABG PCO2 41 mmHg (35-45); ABG PH 7.42 pH Units (7.32-7.45); ABG PO2 59 mmHg (85-104); ABG TCO2 27 mEq/L (20-26)
[2020-11-07 10:50] LABS: Estimated Average Glucose 131 mg/dl; Hemoglobin A1C 6.2 %
[2020-11-07] MEDS: Cefepime HCl 2,000 MG in Water for inj. (sterile) 20 ML IVP SCH (13:55)
[2020-11-07] MEDS: Thiamine (B-1) 100 MG in 0.9 % Sodium Chloride 50 ML IVPB SCH ×2 (15:00→22:10)
[2020-11-07] MEDS ORDERED: Furosemide 40 MG/4 ML VIAL ONE ×2 (15:53→16:00)
[2020-11-07] MEDS ORDERED: methylPREDNISolone 125 MG/2 ML VIAL ONE (15:56)
[2020-11-07] MEDS ORDERED: Furosemide 40 MG/4 ML VIAL IVP ONE (16:00)
[2020-11-07] MEDS ORDERED: methylPREDNISolone 125 MG/2 ML VIAL IVP ONE (16:00)
[2020-11-07] MEDS: Furosemide 40 MG/4 ML VIAL IVP ONE ×2 (16:01→18:01)
[2020-11-07 16:11] LABS: ABG Base Excess -3 mEq/L (-2 to 3); ABG HCO3 27 mEq/L (21-27); ABG Oxygen Saturation 100 % (95-98); ABG PCO2 81 mmHg (35-45); ABG PH 7.14 pH Units (7.32-7.45); ABG PO2 338 mmHg (85-104); ABG TCO2 30 mEq/L (20-26); Blood Gas Pressure Support 14 cm H2O
[2020-11-07] MEDS ORDERED: Ipratropium/Albuterol Neb 3 ML ONE (16:26)
[2020-11-07 16:57] LABS: ABG Base Excess -2 mEq/L (-2 to 3); ABG HCO3 23 mEq/L (21-27); ABG Oxygen Saturation 96 % (95-98); ABG PCO2 38 mmHg (35-45); ABG PH 7.39 pH Units (7.32-7.45); ABG PO2 80 mmHg (85-104); ABG TCO2 24 mEq/L (20-26); Blood Gas VT 450 cc
[2020-11-07] MEDS ORDERED: Magnesium Sulfate 1 GM/102 ML PIGGYBACK IVPB ONE (17:08)
[2020-11-07] MEDS: Ipratropium/Albuterol Neb 3 ML IH ONE ×2 (18:04→20:11)
[2020-11-07 18:25] LABS: Adenovirus Not Detected (Not Detect); Bordetella Pertussis Not Detected (Not Detect); Chlamydophila pneumoniae Not Detected (Not Detect); Coronavirus 229E Not Detected (Not Detect); Coronavirus HKU1 Not Detected (Not Detect); Coronavirus NL63 Not Detected (Not Detect); Coronavirus OC43 Not Detected (Not Detect); Human Metapneumovirus Not Detected (Not Detect); Human Rhinovirus/Enterovirus Not Detected (Not Detect); Influenza A Subtype 2009 H1 Not Detected (Not Detect); Influenza B Not Detected (Not Detect); Mycoplasma pneumoniae Not Detected (Not Detect); Parainfluenza Virus 1 Not Detected (Not Detect); Parainfluenza Virus 2 Not Detected (Not Detect); Parainfluenza Virus 3 Not Detected (Not Detect); Parainfluenza Virus 4 Not Detected (Not Detect); Respiratory Syncytial Virus Not Detected (Not Detect); SARS-CoV-2 Not Detected (Not Detect)
[2020-11-08] MEDS: Cefepime HCl 2,000 MG in Water for inj. (sterile) 20 ML IVP SCH ×2 (00:07→13:27)
[2020-11-08 04:54] LABS: Monocytes % 0.5 %; Red Cell Distribution Width 15.1 % (11.5-14.5)
[2020-11-08 04:56] LABS: Basophils % 0.2 %; Hematocrit 25.6 % (35.3-44.9); Hemoglobin 7.8 g/dL (11.5-15.4); INR 1.3; Immature Granulocytes % 0.3 % (0-4); Immature Platelets 3.5 % (1.1-6.1); Lymphocytes # 0.2 K/mcL (0.6-4.6); Mean Corpuscular HGB Conc 30.5 g/dL (31.6-35.5); Mean Corpuscular Hemoglobin 31.3 pg (28.0-33.3); Mean Corpuscular Volume 102.8 fL (83.0-100.0); Mean Platelet Volume 11.1 fL (9.4-12.4); Prothrombin Time 14.7 Seconds (9.4-12.1); Red Blood Count 2.49 M/mcL (3.82-4.97); White Blood Count 6.1 K/mcL (4.3-11.1)
[2020-11-08 05:02] LABS: Neutrophils # 5.9 K/mcL (1.6-8.9); Platelet Count 83 K/mcL (140-400)
[2020-11-08 05:10] LABS: Calcium 8.2 mg/dL (8.6-10.3); Magnesium 1.9 mg/dL (1.6-2.6); Phosphorous 4.1 mg/dL (2.7-4.5); Potassium 4.2 mEq/L (3.5-5.1)
[2020-11-08 05:50] LABS: Platelet Estimate Decreased (Normal)
[2020-11-08] MEDS: Insulin LISPRO 300 UNITS/3 ML VIAL SUBQ SCH ×3 (06:14→21:39)
[2020-11-08] MEDS ORDERED: *HR* LORazepam 2 MG/ML VIAL IVP ONE (09:07)
[2020-11-08] MEDS ORDERED: Metoprolol XL (24 HR) Succ 25 MG TAB.ER.24H PO SCH (09:15)
[2020-11-08 09:33] LABS: Troponin I 0.18 ng/mL (< 0.04)
[2020-11-08] MEDS: Thiamine (B-1) 100 MG in 0.9 % Sodium Chloride 50 ML IVPB SCH ×2 (09:45→22:12)
[2020-11-08] MEDS ORDERED: Heparin 1,000 UNITS/500 mL 500 ML ONE (09:58)
[2020-11-08] MEDS ORDERED: Isovue-250 100 ML INFUS..BTL ONE (10:25)
[2020-11-08] MEDS ORDERED: D5% in Water 1,000 ML IVC PRN (16:54)
[2020-11-08] MEDS ORDERED: Naloxone 0.4 MG/ML INJ IVP PRN (16:54)
[2020-11-08] MEDS ORDERED: Perflutren Lipid Microsphere 1.3 ML in 0.9 % Sodium Chloride 8.7 ML IVP PRN (16:54)
[2020-11-08] MEDS ORDERED: Dextrose Gel 15 GM/37.5 ML TUBE PO PRN ×2 (16:54)
[2020-11-08] MEDS ORDERED: Ondansetron 4 MG/2 ML VIAL IVP PRN (16:54)
[2020-11-08] MEDS ORDERED: *HR* Dextrose 50 % in Water (Vial) 50 ML VIAL IVP PRN (16:54)
[2020-11-08] MEDS ORDERED: Furosemide 20 MG/2 ML VIAL IVP SCH ×2 (17:00→21:00)
[2020-11-08] MEDS: Acetaminophen 325 MG TABLET PO PRN (19:34)
[2020-11-08] MEDS: Metoprolol XL (24 HR) Succ 25 MG TAB.ER.24H PO SCH (21:00)
[2020-11-08] MEDS: Melatonin 3 MG TABLET PO PRN (23:15)
[2020-11-09] MEDS: Cefepime HCl 2,000 MG in Water for inj. (sterile) 20 ML IVP SCH ×2 (01:07→11:10)
[2020-11-09 06:43] LABS: Basophils % 0.3 %; Eosinophils % 0.2 %; Hematocrit 25.9 % (35.3-44.9); Immature Granulocytes % 0.5 % (0-4); Lymphocytes # 0.7 K/mcL (0.6-4.6); Lymphocytes % 6.9 %; Mean Corpuscular HGB Conc 30.9 g/dL (31.6-35.5); Mean Corpuscular Hemoglobin 30.9 pg (28.0-33.3); Mean Platelet Volume 11.2 fL (9.4-12.4); Monocytes # 0.6 K/mcL (0.0-1.3); Monocytes % 6.2 %; Neutrophils # 8.6 K/mcL (1.6-8.9); Platelet Count 121 K/mcL (140-400); Red Blood Count 2.59 M/mcL (3.82-4.97); Red Cell Distribution Width 15.6 % (11.5-14.5); Segmented Neutrophils % 85.9 %
[2020-11-09 07:01] LABS: Calcium 8.3 mg/dL (8.6-10.3); Phosphorous 4.5 mg/dL (2.7-4.5); Potassium 4.4 mEq/L (3.5-5.1)
[2020-11-09] MEDS: Insulin LISPRO 300 UNITS/3 ML VIAL SUBQ SCH ×4 (09:36→20:40)
[2020-11-09] MEDS: Metoprolol XL (24 HR) Succ 25 MG TAB.ER.24H PO SCH ×2 (11:09→20:39)
[2020-11-09] MEDS: Furosemide 20 MG TABLET PO SCH ×2 (11:09→12:01)
[2020-11-09] MEDS: Thiamine (B-1) 100 MG in 0.9 % Sodium Chloride 50 ML IVPB SCH ×3 (11:09→20:48)
[2020-11-09] MEDS: Albumin 25% 25gram/100mL 25 GM/100 ML IV.SOLN IVPB SCH ×2 (11:11→16:45)
[2020-11-09] MEDS: Acetaminophen 325 MG TABLET PO PRN (11:57)
[2020-11-09] MEDS: Melatonin 3 MG TABLET PO PRN (20:49)
[2020-11-10] MEDS: Albumin 25% 25gram/100mL 25 GM/100 ML IV.SOLN IVPB SCH ×3 (00:05→23:37)
[2020-11-10] MEDS: Cefepime HCl 2,000 MG in Water for inj. (sterile) 20 ML IVP SCH (00:07)
[2020-11-10 04:31] LABS: Mean Corpuscular HGB Conc 30.6 g/dL (31.6-35.5); Mean Platelet Volume 10.9 fL (9.4-12.4); Red Cell Distribution Width 15.8 % (11.5-14.5)
[2020-11-10 04:33] LABS: Basophils % 0.6 %; Eosinophils # 0.3 K/mcL (0.0-0.6); Eosinophils % 4.1 %; Hematocrit 21.6 % (35.3-44.9); Hemoglobin 6.6 g/dL (11.5-15.4); Immature Granulocytes % 0.6 % (0-4); Immature Platelets 3.5 % (1.1-6.1); Lymphocytes # 0.5 K/mcL (0.6-4.6); Mean Corpuscular Hemoglobin 31.3 pg (28.0-33.3); Mean Corpuscular Volume 102.4 fL (83.0-100.0); Monocytes # 0.5 K/mcL (0.0-1.3); Neutrophils # 5.1 K/mcL (1.6-8.9); Red Blood Count 2.11 M/mcL (3.82-4.97); Segmented Neutrophils % 79.7 %; White Blood Count 6.4 K/mcL (4.3-11.1)
[2020-11-10 04:36] LABS: Platelet Count 69 K/mcL (140-400)
[2020-11-10 04:51] LABS: Phosphorous 4.5 mg/dL (2.7-4.5); Potassium 4.1 mEq/L (3.5-5.1)
[2020-11-10] MEDS ORDERED: *HR* LORazepam 2 MG/ML VIAL ONE (08:41)
[2020-11-10] MEDS: Pantoprazole 40 MG VIAL IVP SCH ×2 (10:04→17:49)
[2020-11-10] MEDS: Metoprolol XL (24 HR) Succ 25 MG TAB.ER.24H PO SCH ×2 (10:05→20:37)
[2020-11-10] MEDS: Insulin LISPRO 300 UNITS/3 ML VIAL SUBQ SCH ×4 (10:05→20:37)
[2020-11-10] MEDS: Thiamine (B-1) 100 MG in 0.9 % Sodium Chloride 50 ML IVPB SCH ×3 (10:05→20:45)
[2020-11-10] MEDS: Furosemide 20 MG TABLET PO SCH (13:47)
[2020-11-10] MEDS ORDERED: *HR* LORazepam 2 MG/ML VIAL IVP ONE ×2 (20:20→23:24)
[2020-11-10] MEDS ORDERED: 0.9 % Sodium Chloride 250 ML ONE (20:39)
[2020-11-10] MEDS: Cefepime HCl 1,000 MG in Water for inj. (sterile) 10 ML IVP SCH (23:38)
[2020-11-11] MEDS ORDERED: 0.9 % Sodium Chloride 250 ML ONE (00:23)
[2020-11-11] MEDS: Pantoprazole 40 MG VIAL IVP SCH (05:22)
[2020-11-11] MEDS ORDERED: *HR* LORazepam 2 MG/ML VIAL IVP ONE ×2 (05:42→08:21)
[2020-11-11 05:49] LABS: Hematocrit 28.6 % (35.3-44.9); Immature Granulocytes % 0.7 % (0-4); Lymphocytes % 14.8 %; Red Cell Distribution Width 19.5 % (11.5-14.5)
[2020-11-11 05:51] LABS: Basophils % 0.7 %; Eosinophils # 0.4 K/mcL (0.0-0.6); Eosinophils % 8.2 %; Hemoglobin 8.8 g/dL (11.5-15.4); Immature Platelets 5.5 % (1.1-6.1); Lymphocytes # 0.6 K/mcL (0.6-4.6); Mean Corpuscular HGB Conc 30.8 g/dL (31.6-35.5); Mean Corpuscular Hemoglobin 29.6 pg (28.0-33.3); Mean Corpuscular Volume 96.3 fL (83.0-100.0); Monocytes # 0.4 K/mcL (0.0-1.3); Monocytes % 8.9 %; Neutrophils # 2.9 K/mcL (1.6-8.9); Platelet Count 57 K/mcL (140-400); Red Blood Count 2.97 M/mcL (3.82-4.97); Segmented Neutrophils % 66.7 %; White Blood Count 4.3 K/mcL (4.3-11.1)
[2020-11-11 06:09] LABS: Calcium 8.1 mg/dL (8.6-10.3); Phosphorous 4.8 mg/dL (2.7-4.5); Potassium 4.1 mEq/L (3.5-5.1)
[2020-11-11] MEDS: Insulin LISPRO 300 UNITS/3 ML VIAL SUBQ SCH ×4 (08:05→22:29)
[2020-11-11] MEDS: Metoprolol XL (24 HR) Succ 25 MG TAB.ER.24H PO SCH ×2 (08:07→22:35)
[2020-11-11] MEDS: Thiamine (B-1) 100 MG in 0.9 % Sodium Chloride 50 ML IVPB SCH ×3 (08:17→22:32)
[2020-11-11] MEDS: Furosemide 20 MG TABLET PO SCH (08:21)
[2020-11-11] MEDS: Albumin 25% 25gram/100mL 25 GM/100 ML IV.SOLN IVPB SCH ×2 (08:24→16:10)
[2020-11-11] MEDS: Levothyroxine Sodium 100 MCG VIAL IVP SCH (09:49)
[2020-11-11] MEDS: *HR* Dextrose 50 % in Water (Vial) 50 ML VIAL IVP PRN (13:55)
[2020-11-11] MEDS: *HR* LORazepam 2 MG/ML VIAL IVP PRN (17:01)
[2020-11-12] MEDS: Cefepime HCl 1,000 MG in Water for inj. (sterile) 10 ML IVP SCH (00:50)
[2020-11-12] MEDS: Albumin 25% 25gram/100mL 25 GM/100 ML IV.SOLN IVPB SCH (00:51)
[2020-11-12] MEDS: *HR* LORazepam 2 MG/ML VIAL IVP PRN (01:07)
[2020-11-12 03:50] LABS: Basophils % 0.4 %
[2020-11-12 03:51] LABS: Eosinophils # 0.2 K/mcL (0.0-0.6); Eosinophils % 3.5 %; Hematocrit 29.2 % (35.3-44.9); Immature Granulocytes % 0.4 % (0-4); Immature Platelets 6.5 % (1.1-6.1); Lymphocytes # 0.2 K/mcL (0.6-4.6); Lymphocytes % 5.1 %; Mean Corpuscular HGB Conc 30.8 g/dL (31.6-35.5); Mean Corpuscular Hemoglobin 29.8 pg (28.0-33.3); Mean Corpuscular Volume 96.7 fL (83.0-100.0); Mean Platelet Volume 12.5 fL (9.4-12.4); Monocytes # 0.4 K/mcL (0.0-1.3); Monocytes % 9.3 %; Neutrophils # 3.7 K/mcL (1.6-8.9); Red Blood Count 3.02 M/mcL (3.82-4.97); Red Cell Distribution Width 19.4 % (11.5-14.5); Segmented Neutrophils % 81.3 %; White Blood Count 4.5 K/mcL (4.3-11.1)
[2020-11-12 03:52] LABS: Platelet Count 51 K/mcL (140-400)
[2020-11-12 03:56] LABS: INR 1.5; Prothrombin Time 16.9 Seconds (9.4-12.1)
[2020-11-12 04:08] LABS: Calcium 8.3 mg/dL (8.6-10.3); Magnesium 1.9 mg/dL (1.6-2.6); Phosphorous 4.7 mg/dL (2.7-4.5); Potassium 4.3 mEq/L (3.5-5.1)
[2020-11-12] MEDS ORDERED: Furosemide 40 MG/4 ML VIAL IVP ONE ×2 (05:29→08:33)
[2020-11-12] MEDS: Levothyroxine Sodium 100 MCG VIAL IVP SCH (05:48)
[2020-11-12] MEDS: Insulin LISPRO 300 UNITS/3 ML VIAL SUBQ SCH ×4 (07:45→21:29)
[2020-11-12] MEDS ORDERED: 0.9 % Sodium Chloride 250 ML IVC PRN (08:06)
[2020-11-12] MEDS ORDERED: Albumin 25% 25gram/100mL 25 GM/100 ML IV.SOLN IVPB PRN (08:06)
[2020-11-12] MEDS ORDERED: 0.9 % Sodium Chloride 1,000 ML PRIME SCH (08:15)
[2020-11-12] MEDS: Pantoprazole 40 MG VIAL IVP SCH (10:07)
[2020-11-12] MEDS ORDERED: Heparin 1,000 UNITS/500 mL 500 ML ONE (10:07)
[2020-11-12] MEDS ORDERED: Lidocaine/EPI 1:100k 1% 50 ML VIAL ONE (10:07)
[2020-11-12] MEDS: Thiamine (B-1) 100 MG in 0.9 % Sodium Chloride 50 ML IVPB SCH ×3 (10:10→21:24)
[2020-11-12] MEDS: Metoprolol XL (24 HR) Succ 25 MG TAB.ER.24H PO SCH ×2 (10:29→21:25)
[2020-11-12 10:38] LABS: ABG Base Excess -6 mEq/L (-2 to 3); ABG HCO3 19 mEq/L (21-27); ABG Oxygen Saturation 92 % (95-98); ABG PCO2 33 mmHg (35-45); ABG PH 7.36 pH Units (7.32-7.45); ABG PO2 65 mmHg (85-104); ABG TCO2 20 mEq/L (20-26)
[2020-11-12 11:09] LABS: Hepatitis B Surface Antibody < 3.10 mIU/mL
[2020-11-12 11:20] LABS: Hepatitis B Surface Antigen Nonreactive (Nonreactive)
[2020-11-12] MEDS ORDERED: *HR* Heparin 5,000 UNIT/ML VIAL ONE (11:24)
[2020-11-12] MEDS ORDERED: *HR* Heparin 10,000 UNIT/10 ML VIAL ONE (13:22)
[2020-11-13] MEDS: Cefepime HCl 1,000 MG in Water for inj. (sterile) 10 ML IVP SCH (02:26)
[2020-11-13] MEDS: Levothyroxine Sodium 100 MCG VIAL IVP SCH (04:55)
[2020-11-13 05:33] LABS: Basophils % 0.7 %; Immature Granulocytes % 1.3 % (0-4); Mean Corpuscular Hemoglobin 29.7 pg (28.0-33.3)
[2020-11-13 05:36] LABS: Eosinophils # 0.3 K/mcL (0.0-0.6); Eosinophils % 6.3 %; Hematocrit 29.1 % (35.3-44.9); Immature Platelets 7.4 % (1.1-6.1); Lymphocytes # 0.5 K/mcL (0.6-4.6); Lymphocytes % 11.3 %; Mean Corpuscular HGB Conc 30.9 g/dL (31.6-35.5); Mean Platelet Volume 12.3 fL (9.4-12.4); Monocytes # 0.7 K/mcL (0.0-1.3); Monocytes % 15.2 %; Red Blood Count 3.03 M/mcL (3.82-4.97); Segmented Neutrophils % 65.2 %; White Blood Count 4.6 K/mcL (4.3-11.1)
[2020-11-13 05:53] LABS: Calcium 8.5 mg/dL (8.6-10.3); Magnesium 1.9 mg/dL (1.6-2.6); Potassium 3.7 mEq/L (3.5-5.1)
[2020-11-13 05:54] LABS: Platelet Count 55 K/mcL (140-400)
[2020-11-13] MEDS ORDERED: 0.9 % Sodium Chloride 250 ML IVC PRN (07:12)
[2020-11-13] MEDS ORDERED: *HR* Heparin 10,000 UNIT/10 ML VIAL ONE (09:51)
[2020-11-13] MEDS: Insulin LISPRO 300 UNITS/3 ML VIAL SUBQ SCH ×4 (10:26→20:23)
[2020-11-13] MEDS: Metoprolol XL (24 HR) Succ 25 MG TAB.ER.24H PO SCH ×2 (10:27→20:23)
[2020-11-13] MEDS: Pantoprazole 40 MG VIAL IVP SCH (10:58)
[2020-11-13] MEDS: *HR* Dextrose 50 % in Water (Vial) 50 ML VIAL IVP PRN (17:33)
[2020-11-13] MEDS ORDERED: Cefepime HCl 1,000 MG in Water for inj. (sterile) 10 ML IVP SCH (18:00)
[2020-11-13 19:53] VITALS: BP 108/67
== END 2020-11-13 21:13 | disposition short-term general hospital (02) | DRG 70 ==
LOC: 3ANU 12:40 → EMEROOARM 12:40 → SUATTDRO 16:12 → 3ANU 16:52 → ICNU 11-07 16:23 → 3ANU 11-08 15:39
PROVIDERS: ADMIT Pharmacist; ATTEND Pharmacist
PROC: IRPERMA (2020-11-12 12:00)

== ENCOUNTER 2021-04-23 17:53 | Observation (INO) ==
[2021-04-23 20:49] LABS: Basophils % 0.8 %; Hematocrit 26.6 % (35.3-44.9); Immature Granulocytes % 0.8 % (0-4); Mean Corpuscular Volume 105.6 fL (83.0-100.0); Red Blood Count 2.52 M/mcL (3.82-4.97)
[2021-04-23 20:50] LABS: White Blood Count 4.7 K/mcL (4.3-11.1)
[2021-04-23 20:51] LABS: Eosinophils # 0.3 K/mcL (0.0-0.6); Eosinophils % 6.6 %; Hemoglobin 8.2 g/dL (11.5-15.4); Immature Platelets 4.7 % (1.1-6.1); Lymphocytes # 0.9 K/mcL (0.6-4.6); Lymphocytes % 18.7 %; Mean Corpuscular HGB Conc 30.8 g/dL (31.6-35.5); Mean Corpuscular Hemoglobin 32.5 pg (28.0-33.3); Mean Platelet Volume 11.2 fL (9.4-12.4); Monocytes # 0.4 K/mcL (0.0-1.3); Monocytes % 7.4 %; Neutrophils # 3.1 K/mcL (1.6-8.9); Platelet Count 90 K/mcL (140-400); Red Cell Distribution Width 18.1 % (11.5-14.5); Segmented Neutrophils % 65.7 %
[2021-04-23 21:09] LABS: Calcium 8.9 mg/dL (8.6-10.3); Potassium 4.5 mEq/L (3.5-5.1)
[2021-04-23 21:40] LABS: Albumin 3.1 g/dL (3.5-5.7); Albumin/Globulin Ratio 0.9 (1.1-2.2); Bilirubin,Direct 0.4 mg/dL (0.0-0.2); Bilirubin,Indirect 0.7 mg/dL (0.0-1.0); Bilirubin,Total 1.1 mg/dL (0.3-1.0); Globulin 3.3 g/dL (2.4-3.5); Total Protein 6.4 g/dL (6.4-8.9)
[2021-04-24] MEDS ORDERED: Furosemide 40 MG/4 ML VIAL IVP ONE (02:58)
[2021-04-24] MEDS ORDERED: Albumin 25% 25gram/100mL 25 GM/100 ML IV.SOLN IVPB ONE (04:26)
[2021-04-24] MEDS ORDERED: Naloxone 0.4 MG/ML INJ IVP PRN (04:28)
[2021-04-24] MEDS ORDERED: Ondansetron 4 MG/2 ML VIAL IVP PRN (04:28)
[2021-04-24] MEDS ORDERED: D5% in Water 1,000 ML IVC PRN (04:49)
[2021-04-24] MEDS ORDERED: Dextrose Gel 15 GM/37.5 ML TUBE PO PRN ×2 (04:49)
[2021-04-24] MEDS ORDERED: *HR* Dextrose 50 % in Water (Vial) 50 ML VIAL IVP PRN (04:49)
[2021-04-24 05:35] LABS: Mean Corpuscular Volume 104.1 fL (83.0-100.0); Mean Platelet Volume 11.5 fL (9.4-12.4)
[2021-04-24 05:37] LABS: Hematocrit 25.4 % (35.3-44.9); Immature Platelets 4.2 % (1.1-6.1); Mean Corpuscular HGB Conc 31.5 g/dL (31.6-35.5); Mean Corpuscular Hemoglobin 32.8 pg (28.0-33.3); Red Blood Count 2.44 M/mcL (3.82-4.97); White Blood Count 4.1 K/mcL (4.3-11.1)
[2021-04-24 05:48] LABS: % Iron Saturation 22 % (15-50); Iron 70 mcg/dL (50-170); Transferrin 223 mg/dL (203-362)
[2021-04-24 05:49] LABS: INR 1.2; Prothrombin Time 14.2 Seconds (9.4-12.1)
[2021-04-24 05:50] LABS: Calcium 8.8 mg/dL (8.6-10.3); Potassium 4.6 mEq/L (3.5-5.1)
[2021-04-24 06:13] LABS: Folate 8.2 ng/mL (3.0-16.0)
[2021-04-24] MEDS: Furosemide 40 MG/4 ML VIAL IVP SCH ×2 (06:51→20:02)
[2021-04-24] MEDS: Insulin LISPRO 300 UNITS/3 ML VIAL SUBQ SCH ×3 (07:39→16:44)
[2021-04-24] MEDS ORDERED: *HR* HYDROcodone/Acet 5/325 mg TABLET PO PRN (15:04)
[2021-04-24] MEDS ORDERED: Nitroglycerin 0.4 MG TAB.SUBL SL PRN (15:04)
[2021-04-24] MEDS ORDERED: hydrOXYzine pamoate 25 MG CAPSULE PO PRN (15:41)
[2021-04-24] MEDS: levETIRAcetam 250 MG TABLET PO SCH (17:31)
[2021-04-24] MEDS: Melatonin 3 MG TABLET PO PRN (20:02)
[2021-04-25 07:21] LABS: Hematocrit 24.2 % (35.3-44.9); Hemoglobin 7.7 g/dL (11.5-15.4); Mean Corpuscular HGB Conc 31.8 g/dL (31.6-35.5); Mean Corpuscular Hemoglobin 32.6 pg (28.0-33.3); Mean Corpuscular Volume 102.5 fL (83.0-100.0); Mean Platelet Volume 11.7 fL (9.4-12.4); Red Blood Count 2.36 M/mcL (3.82-4.97); Red Cell Distribution Width 17.8 % (11.5-14.5); White Blood Count 4.2 K/mcL (4.3-11.1)
[2021-04-25 08:11] LABS: Calcium 8.5 mg/dL (8.6-10.3); Potassium 4.3 mEq/L (3.5-5.1)
[2021-04-25] MEDS: Insulin LISPRO 300 UNITS/3 ML VIAL SUBQ SCH ×3 (08:31→17:15)
[2021-04-25] MEDS ORDERED: amLODIPine 5 MG TABLET PO SCH (09:00)
[2021-04-25] MEDS: Fenofibrate 54 MG TABLET PO SCH (10:02)
[2021-04-25] MEDS: Metoprolol XL (24 HR) Succ 25 MG TAB.ER.24H PO SCH (10:02)
[2021-04-25] MEDS: Furosemide 40 MG/4 ML VIAL IVP SCH (10:03)
[2021-04-25] MEDS: levETIRAcetam 250 MG TABLET PO SCH ×2 (10:03→15:43)
[2021-04-25] MEDS: Albumin 25% 25gram/100mL 25 GM/100 ML IV.SOLN IVPB SCH ×2 (10:22→17:24)
[2021-04-25 15:06] LABS: Uric Acid 10.7 mg/dL (2.3-7.6)
[2021-04-25] MEDS: *HR* Heparin 5,000 UNIT/ML VIAL SQ SCH (17:23)
[2021-04-25] MEDS ORDERED: rOPINIRole 1 MG TABLET PO SCH (21:00)
[2021-04-25] MEDS: Melatonin 3 MG TABLET PO PRN (21:42)
[2021-04-26 03:22] LABS: Hemoglobin 7.2 g/dL (11.5-15.4)
[2021-04-26 03:24] LABS: Basophils % 0.6 %; Eosinophils # 0.2 K/mcL (0.0-0.6); Hematocrit 22.3 % (35.3-44.9); Immature Granulocytes % 0.8 % (0-4); Immature Platelets 3.6 % (1.1-6.1); Lymphocytes # 0.8 K/mcL (0.6-4.6); Lymphocytes % 21.7 %; Mean Corpuscular HGB Conc 32.3 g/dL (31.6-35.5); Mean Corpuscular Hemoglobin 33.2 pg (28.0-33.3); Mean Corpuscular Volume 102.8 fL (83.0-100.0); Mean Platelet Volume 11.1 fL (9.4-12.4); Monocytes # 0.3 K/mcL (0.0-1.3); Monocytes % 8.1 %; Neutrophils # 2.3 K/mcL (1.6-8.9); Red Blood Count 2.17 M/mcL (3.82-4.97); Red Cell Distribution Width 17.6 % (11.5-14.5); Segmented Neutrophils % 63.8 %; White Blood Count 3.6 K/mcL (4.3-11.1)
[2021-04-26 03:33] LABS: Platelet Count 76 K/mcL (140-400)
[2021-04-26 03:49] LABS: Calcium 8.6 mg/dL (8.6-10.3); Phosphorous 3.6 mg/dL (2.7-4.5); Potassium 4.2 mEq/L (3.5-5.1)
[2021-04-26] MEDS: *HR* Heparin 5,000 UNIT/ML VIAL SQ SCH (05:39)
[2021-04-26] MEDS: Albumin 25% 25gram/100mL 25 GM/100 ML IV.SOLN IVPB SCH (05:40)
[2021-04-26 07:06] VITALS: BP 129/46
[2021-04-26] MEDS: Insulin LISPRO 300 UNITS/3 ML VIAL SUBQ SCH (07:19)
[2021-04-26] MEDS: Fenofibrate 54 MG TABLET PO SCH (08:04)
[2021-04-26] MEDS: levETIRAcetam 250 MG TABLET PO SCH (08:05)
[2021-04-26] MEDS: Metoprolol XL (24 HR) Succ 25 MG TAB.ER.24H PO SCH (08:05)
[2021-04-26] MEDS ORDERED: Furosemide 40 MG TABLET PO SCH (09:00)
[2021-04-26 09:29] LABS: Hematocrit 22.8 % (35.3-44.9); Hemoglobin 7.4 g/dL (11.5-15.4)
[2021-04-26 10:15] LABS: Bilirubin,Urine Negative (Negative); Blood,Urine Negative (Negative); Clarity,Urine Clear (Clear); Color,Urine Yellow (Yellow); Glucose,Urine (UA) Normal (Normal); Ketones,Urine Negative (Negative); Leukocyte Esterase,Urine Negative (Negative); Nitrite,Urine Negative (Negative); PH,Urine 7.5 pH Units (5.0-8.0); Protein,Urine Negative (Neg-Trace); Urobilinogen,Urine Normal (Normal)
[2021-04-26 10:26] LABS: Sodium, Urine 108.3 mEq/L
[2021-04-26 11:30] LABS: Protein/Creatinine Ratio,Urine 0.29 mg/mg (0.00-0.20)
== END 2021-04-26 11:20 | disposition home health service (06) ==
LOC: EMEROOARM 17:53 → 3BNU 17:53 → SUATTDRO 04-24 04:04 → 3BNU 04-24 04:33
PROVIDERS: ADMIT Student in an Organized Health Care Education/Training Program; ATTEND Internal Medicine

== ENCOUNTER 2021-06-18 10:04 | Inpatient (IN) ==
[2021-06-18 10:55] LABS: Hemoglobin 6.9 g/dL (11.5-15.4); Red Cell Distribution Width 14.9 % (11.5-14.5)
[2021-06-18 10:57] LABS: Basophils % 0.4 %; Eosinophils # 0.1 K/mcL (0.0-0.6); Eosinophils % 1.1 %; Hematocrit 21.7 % (35.3-44.9); Immature Granulocytes % 0.4 % (0-4); Immature Platelets 3.9 % (1.1-6.1); Lymphocytes # 0.5 K/mcL (0.6-4.6); Lymphocytes % 8.1 %; Mean Corpuscular HGB Conc 31.8 g/dL (31.6-35.5); Mean Corpuscular Hemoglobin 31.8 pg (28.0-33.3); Mean Platelet Volume 11.9 fL (9.4-12.4); Monocytes # 0.5 K/mcL (0.0-1.3); Monocytes % 8.8 %; Red Blood Count 2.17 M/mcL (3.82-4.97); Segmented Neutrophils % 81.2 %; White Blood Count 5.6 K/mcL (4.3-11.1)
[2021-06-18 10:59] LABS: INR 1.6; Prothrombin Time 17.7 Seconds (9.4-12.1)
[2021-06-18 11:02] LABS: Activated Partial Thrombo Time 33.1 Seconds (26.0-36.0)
[2021-06-18 11:03] LABS: Neutrophils # 4.6 K/mcL (1.6-8.9); Platelet Count 67 K/mcL (140-400)
[2021-06-18 11:12] LABS: Calcium 9.1 mg/dL (8.6-10.3); Potassium 4.1 mEq/L (3.5-5.1)
[2021-06-18 11:25] LABS: Troponin I 1.02 ng/mL (< 0.04)
[2021-06-18] MEDS ORDERED: Naloxone 0.4 MG/ML INJ IVP PRN (13:07)
[2021-06-18] MEDS ORDERED: 0.9 % Sodium Chloride 250 ML ONE ×2 (13:24→19:15)
[2021-06-18] MEDS ORDERED: Dextrose Gel 15 GM/37.5 ML TUBE PO PRN ×2 (13:26)
[2021-06-18] MEDS ORDERED: *HR* Dextrose 50 % in Water (Vial) 50 ML VIAL IVP PRN (13:26)
[2021-06-18] MEDS ORDERED: D5% in Water 1,000 ML IVC PRN (13:26)
[2021-06-18] MEDS ORDERED: Melatonin 3 MG TABLET PO PRN (14:30)
[2021-06-18] MEDS ORDERED: levETIRAcetam 250 MG TABLET PO SCH (14:30)
[2021-06-18 14:35] LABS: Magnesium 2.4 mg/dL (1.6-2.6)
[2021-06-18] MEDS: Insulin LISPRO 300 UNITS/3 ML VIAL SUBQ SCH ×2 (16:18→21:21)
[2021-06-18] MEDS: Furosemide 40 MG TABLET PO SCH (17:10)
[2021-06-18 17:46] LABS: Hematocrit 22.7 % (35.3-44.9); Hemoglobin 7.7 g/dL (11.5-15.4)
[2021-06-18] MEDS: Ondansetron 4 MG/2 ML VIAL IVP PRN (18:28)
[2021-06-18] MEDS: rOPINIRole 0.25 MG TABLET PO SCH (21:21)
[2021-06-19 05:07] LABS: Basophils % 0.2 %; Eosinophils # 0.1 K/mcL (0.0-0.6); Eosinophils % 1.9 %; Hematocrit 27.3 % (35.3-44.9); Hemoglobin 9.1 g/dL (11.5-15.4); Immature Granulocytes % 0.3 % (0-4); Immature Platelets 4.3 % (1.1-6.1); Lymphocytes # 0.7 K/mcL (0.6-4.6); Lymphocytes % 12.1 %; Mean Corpuscular HGB Conc 33.3 g/dL (31.6-35.5); Mean Corpuscular Hemoglobin 31.5 pg (28.0-33.3); Mean Corpuscular Volume 94.5 fL (83.0-100.0); Mean Platelet Volume 12.6 fL (9.4-12.4); Monocytes # 0.6 K/mcL (0.0-1.3); Monocytes % 9.4 %; Neutrophils # 4.5 K/mcL (1.6-8.9); Red Blood Count 2.89 M/mcL (3.82-4.97); Segmented Neutrophils % 76.1 %; White Blood Count 5.9 K/mcL (4.3-11.1)
[2021-06-19 05:16] LABS: Platelet Count 58 K/mcL (140-400)
[2021-06-19] MEDS ORDERED: Perflutren Lipid Microsphere 1.3 ML in 0.9 % Sodium Chloride 8.7 ML IVP PRN (07:16)
[2021-06-19 08:26] LABS: Calcium 8.4 mg/dL (8.6-10.3); Potassium 3.9 mEq/L (3.5-5.1)
[2021-06-19] MEDS: Insulin LISPRO 300 UNITS/3 ML VIAL SUBQ SCH ×4 (08:27→20:14)
[2021-06-19] MEDS: Furosemide 40 MG TABLET PO SCH (08:31)
[2021-06-19] MEDS: levETIRAcetam 250 MG TABLET PO SCH (08:31)
[2021-06-19] MEDS: Metoprolol XL (24 HR) Succ 25 MG TAB.ER.24H PO SCH (08:31)
[2021-06-19 09:20] LABS: Troponin I 1.55 ng/mL (< 0.04)
[2021-06-19] MEDS ORDERED: hydrOXYzine pamoate 25 MG CAPSULE PO PRN (10:11)
[2021-06-19] MEDS: rOPINIRole 0.25 MG TABLET PO SCH (20:17)
[2021-06-20 01:35] LABS: Hematocrit 26.7 % (35.3-44.9)
[2021-06-20 01:57] LABS: Calcium 8.6 mg/dL (8.6-10.3); Potassium 4.1 mEq/L (3.5-5.1)
[2021-06-20] MEDS: Insulin LISPRO 300 UNITS/3 ML VIAL SUBQ SCH ×4 (07:10→22:25)
[2021-06-20] MEDS: Furosemide 40 MG TABLET PO SCH (07:20)
[2021-06-20] MEDS: levETIRAcetam 250 MG TABLET PO SCH (07:20)
[2021-06-20] MEDS: Metoprolol XL (24 HR) Succ 25 MG TAB.ER.24H PO SCH (08:25)
[2021-06-20] MEDS ORDERED: 0.9 % Sodium Chloride 1,000 ML IVC SCH (10:15)
[2021-06-20] MEDS: Ondansetron 4 MG/2 ML VIAL IVP PRN (10:22)
[2021-06-20] MEDS: rOPINIRole 0.25 MG TABLET PO SCH (20:35)
[2021-06-21] MEDS: Insulin LISPRO 300 UNITS/3 ML VIAL SUBQ SCH ×4 (07:12→20:14)
[2021-06-21] MEDS: levETIRAcetam 250 MG TABLET PO SCH (07:21)
[2021-06-21] MEDS: Furosemide 40 MG TABLET PO SCH (07:21)
[2021-06-21] MEDS: Metoprolol XL (24 HR) Succ 25 MG TAB.ER.24H PO SCH (07:21)
[2021-06-21 08:06] LABS: Calcium 7.8 mg/dL (8.6-10.3)
[2021-06-21 11:19] LABS: Hematocrit 25.6 % (35.3-44.9); Hemoglobin 8.5 g/dL (11.5-15.4)
[2021-06-21] MEDS ORDERED: Sodium Bicarbonate 75 MEQ in 0.45 % Sodium Chloride 1,000 ML IVC SCH ×2 (14:45→17:30)
[2021-06-21] MEDS: rOPINIRole 0.25 MG TABLET PO SCH (20:14)
[2021-06-21] MEDS: *HR* OxyCODONE/APAP 10/325 TABLET PO PRN (20:40)
[2021-06-22 02:16] LABS: Basophils % 0.2 %
[2021-06-22 02:18] LABS: Eosinophils # 0.1 K/mcL (0.0-0.6); Eosinophils % 2.3 %; Hematocrit 23.7 % (35.3-44.9); Immature Granulocytes % 0.2 % (0-4); Immature Platelets 5.1 % (1.1-6.1); Lymphocytes # 0.6 K/mcL (0.6-4.6); Lymphocytes % 10.3 %; Mean Corpuscular HGB Conc 33.8 g/dL (31.6-35.5); Mean Corpuscular Volume 94.8 fL (83.0-100.0); Mean Platelet Volume 12.5 fL (9.4-12.4); Monocytes # 0.6 K/mcL (0.0-1.3); Monocytes % 9.8 %; Neutrophils # 4.3 K/mcL (1.6-8.9); Red Cell Distribution Width 15.7 % (11.5-14.5); Segmented Neutrophils % 77.2 %; White Blood Count 5.6 K/mcL (4.3-11.1)
[2021-06-22 02:20] LABS: Platelet Count 51 K/mcL (140-400)
[2021-06-22 02:38] LABS: Potassium 3.8 mEq/L (3.5-5.1); Uric Acid 14.1 mg/dL (2.3-7.6)
[2021-06-22 03:42] LABS: Hepatitis B Surface Antigen Nonreactive (Nonreactive)
[2021-06-22 04:12] LABS: Hepatitis B Core IgM Nonreactive (Nonreactive)
[2021-06-22 04:15] LABS: Hepatitis C Virus Antibody Nonreactive (Nonreactive)
[2021-06-22 04:17] LABS: Hepatitis A Antibody IgM Nonreactive (Nonreactive)
[2021-06-22] MEDS: Metoprolol XL (24 HR) Succ 25 MG TAB.ER.24H PO SCH (07:58)
[2021-06-22] MEDS: levETIRAcetam 250 MG TABLET PO SCH (07:59)
[2021-06-22] MEDS: Insulin LISPRO 300 UNITS/3 ML VIAL SUBQ SCH ×4 (09:30→22:18)
[2021-06-22 11:02] LABS: Bilirubin,Urine Negative (Negative); Blood,Urine Moderate (Negative); Clarity,Urine Turbid (Clear); Color,Urine Yellow (Yellow); Glucose,Urine (UA) Normal (Normal); Ketones,Urine Negative (Negative); Leukocyte Esterase,Urine Large (Negative); Nitrite,Urine Negative (Negative); PH,Urine 5.5 pH Units (5.0-8.0); Protein,Urine 50 mg/dL (Neg-Trace); Renal Epithelial Cells,Urine Few per hpf (None-Few); Specific Gravity,Urine 1.015 (1.010-1.025); Squamous Epithelial Cell,Urine Few per hpf (None-Few); Transitional Epi Cells,Urine Moderate per hpf (None-Few); Urobilinogen,Urine Normal (Normal); WBC,Urine TNTC per hpf (0-3)
[2021-06-22 11:10] LABS: Protein/Creatinine Ratio,Urine 0.53 mg/mg (0.00-0.20); Sodium, Urine 15.6 mEq/L
[2021-06-22] MEDS ORDERED: Pantoprazole 40 MG VIAL IVP ONE (14:55)
[2021-06-22] MEDS: Ondansetron 4 MG/2 ML VIAL IVP PRN ×2 (14:57→21:09)
[2021-06-22] MEDS: Sodium Bicarbonate 75 MEQ in 0.45 % Sodium Chloride 1,000 ML IVC SCH (15:12)
[2021-06-22] MEDS: Nystatin POWDER 30 GM BOTTLE TP SCH ×2 (15:13→22:18)
[2021-06-22 15:19] LABS: Hematocrit 26.4 % (35.3-44.9); Hemoglobin 8.8 g/dL (11.5-15.4)
[2021-06-22] MEDS: Pantoprazole 40 MG VIAL IVP SCH (20:19)
[2021-06-22] MEDS: rOPINIRole 0.25 MG TABLET PO SCH (20:20)
[2021-06-23 03:33] LABS: Basophils % 0.2 %; Red Blood Count 2.44 M/mcL (3.82-4.97)
[2021-06-23 03:35] LABS: Eosinophils # 0.1 K/mcL (0.0-0.6); Hemoglobin 7.6 g/dL (11.5-15.4); Immature Granulocytes % 0.5 % (0-4); Immature Platelets 3.5 % (1.1-6.1); Lymphocytes # 0.6 K/mcL (0.6-4.6); Lymphocytes % 10.8 %; Mean Corpuscular Hemoglobin 31.1 pg (28.0-33.3); Mean Corpuscular Volume 94.3 fL (83.0-100.0); Mean Platelet Volume 12.9 fL (9.4-12.4); Monocytes # 0.4 K/mcL (0.0-1.3); Monocytes % 7.4 %; Neutrophils # 4.7 K/mcL (1.6-8.9); Red Cell Distribution Width 15.8 % (11.5-14.5); Segmented Neutrophils % 80.1 %; White Blood Count 5.9 K/mcL (4.3-11.1)
[2021-06-23 03:49] LABS: Calcium 7.8 mg/dL (8.6-10.3); Potassium 3.8 mEq/L (3.5-5.1)
[2021-06-23 04:04] LABS: Platelet Count 48 K/mcL (140-400)
[2021-06-23] MEDS ORDERED: Lidocaine -MPF 2% 5 ML VIAL SQ ONE (04:39)
[2021-06-23] MEDS ORDERED: *HR* Propofol 500 MG/50 ML BOTTLE IVP ONE (04:39)
[2021-06-23] MEDS ORDERED: EPHEDrine 50 MG/ML VIAL IVP ONE (04:39)
[2021-06-23] MEDS: levETIRAcetam 250 MG TABLET PO SCH (07:29)
[2021-06-23] MEDS: Nystatin POWDER 30 GM BOTTLE TP SCH ×3 (07:30→21:08)
[2021-06-23] MEDS: Metoprolol XL (24 HR) Succ 25 MG TAB.ER.24H PO SCH (07:30)
[2021-06-23] MEDS: Insulin LISPRO 300 UNITS/3 ML VIAL SUBQ SCH ×4 (07:32→21:14)
[2021-06-23] MEDS: Pantoprazole 40 MG VIAL IVP SCH ×2 (07:49→21:07)
[2021-06-23] MEDS ORDERED: *HR* FentaNYL (PF) 100 MCG/2 ML VIAL IVP ONE (08:38)
[2021-06-23] MEDS ORDERED: *HR* Midazolam HCl 5 MG/5 ML VIAL IVP ONE (08:38)
[2021-06-23] MEDS ORDERED: Simethicone 40 MG/0.6 ML MLS IR ONE (08:38)
[2021-06-23] MEDS ORDERED: Tetracaine/Benzocaine/Butamben 1 SPRAY AEROSOL MM ONE (08:38)
[2021-06-23 09:33] LABS: Hematocrit 23.4 % (35.3-44.9); Hemoglobin 7.7 g/dL (11.5-15.4)
[2021-06-23] MEDS ORDERED: *HR* Propofol 200 MG/20 ML VIAL IVP ONE ×2 (09:49→10:26)
[2021-06-23] MEDS ORDERED: Lidocaine -MPF 2% 2 ML VIAL ONE (09:49)
[2021-06-23 10:26] LABS: Folate 13.7 ng/mL (3.0-16.0)
[2021-06-23 10:27] LABS: Vitamin B12 > 1500 pg/mL (250-1100)
[2021-06-23] MEDS ORDERED: *HR* Succinylcholine 200 MG/10 ML VIAL IVP ONE (10:40)
[2021-06-23] MEDS ORDERED: *HR* FentaNYL (PF) 100 MCG/2 ML VIAL ONE (10:40)
[2021-06-23] MEDS ORDERED: Ondansetron 4 MG/2 ML VIAL ONE (10:40)
[2021-06-23] MEDS ORDERED: 0.9 % Sodium Chloride 250 ML ONE (12:27)
[2021-06-23] MEDS: Sodium Bicarbonate 75 MEQ in 0.45 % Sodium Chloride 1,000 ML IVC SCH (15:20)
[2021-06-23 16:11] LABS: Eosinophils % 0.1 %; Monocytes % 2.7 %; Red Cell Distribution Width 15.5 % (11.5-14.5)
[2021-06-23 16:12] LABS: Basophils % 0.1 %; Hematocrit 26.2 % (35.3-44.9); Immature Granulocytes % 0.4 % (0-4); Immature Platelets 3.9 % (1.1-6.1); Lymphocytes # 0.3 K/mcL (0.6-4.6); Lymphocytes % 3.8 %; Mean Corpuscular HGB Conc 34.4 g/dL (31.6-35.5); Mean Corpuscular Hemoglobin 31.9 pg (28.0-33.3); Mean Corpuscular Volume 92.9 fL (83.0-100.0); Mean Platelet Volume 11.6 fL (9.4-12.4); Monocytes # 0.2 K/mcL (0.0-1.3); Neutrophils # 6.9 K/mcL (1.6-8.9); Red Blood Count 2.82 M/mcL (3.82-4.97); Segmented Neutrophils % 92.9 %; White Blood Count 7.4 K/mcL (4.3-11.1)
[2021-06-23 16:17] LABS: Platelet Count 61 K/mcL (140-400)
[2021-06-23] MEDS: rOPINIRole 0.25 MG TABLET PO SCH (21:14)
[2021-06-24] MEDS: *HR* OxyCODONE/APAP 10/325 TABLET PO PRN (04:01)
[2021-06-24] MEDS: Insulin LISPRO 300 UNITS/3 ML VIAL SUBQ SCH ×4 (07:25→20:20)
[2021-06-24 07:55] LABS: Hemoglobin 7.8 g/dL (11.5-15.4)
[2021-06-24 07:57] LABS: Basophils % 0.1 %; Hematocrit 22.8 % (35.3-44.9); Immature Granulocytes % 0.4 % (0-4); Immature Platelets 4.9 % (1.1-6.1); Lymphocytes # 0.6 K/mcL (0.6-4.6); Lymphocytes % 7.9 %; Mean Corpuscular HGB Conc 34.2 g/dL (31.6-35.5); Mean Corpuscular Hemoglobin 31.8 pg (28.0-33.3); Mean Corpuscular Volume 93.1 fL (83.0-100.0); Monocytes # 0.7 K/mcL (0.0-1.3); Monocytes % 8.2 %; Neutrophils # 6.7 K/mcL (1.6-8.9); Red Blood Count 2.45 M/mcL (3.82-4.97); Red Cell Distribution Width 15.4 % (11.5-14.5); Segmented Neutrophils % 83.4 %
[2021-06-24 08:11] LABS: Calcium 7.3 mg/dL (8.6-10.3); Potassium 3.9 mEq/L (3.5-5.1)
[2021-06-24 08:17] LABS: Platelet Count 61 K/mcL (140-400)
[2021-06-24] MEDS ORDERED: Heparin 1,000 UNITS/500 mL 500 ML ONE (09:38)
[2021-06-24] MEDS: levETIRAcetam 250 MG TABLET PO SCH (09:41)
[2021-06-24] MEDS: Metoprolol XL (24 HR) Succ 25 MG TAB.ER.24H PO SCH (09:41)
[2021-06-24] MEDS: Nystatin POWDER 30 GM BOTTLE TP SCH ×3 (09:43→20:57)
[2021-06-24] MEDS: Pantoprazole 40 MG VIAL IVP SCH (09:43)
[2021-06-24] MEDS: Sodium Bicarbonate 75 MEQ in 0.45 % Sodium Chloride 1,000 ML IVC SCH (09:52)
[2021-06-24] MEDS ORDERED: 0.9 % Sodium Chloride 250 ML ONE (11:02)
[2021-06-24] MEDS ORDERED: Isovue-370 500 ML BOTTLE IVP ONE ×2 (11:08→11:14)
[2021-06-24 11:27] LABS: Basophils % 0.2 %; Eosinophils % 0.2 %; Nucleated Red Blood Cells 0.2 /100 WBC (0)
[2021-06-24 11:29] LABS: Hematocrit 22.7 % (35.3-44.9); Immature Granulocytes % 1.8 % (0-4); Immature Platelets 4.5 % (1.1-6.1); Mean Corpuscular HGB Conc 35.2 g/dL (31.6-35.5); Mean Corpuscular Hemoglobin 32.1 pg (28.0-33.3); Mean Corpuscular Volume 91.2 fL (83.0-100.0); Mean Platelet Volume 13.2 fL (9.4-12.4); Monocytes # 1.2 K/mcL (0.0-1.3); Monocytes % 11.1 %; Neutrophils # 8.2 K/mcL (1.6-8.9); Red Blood Count 2.49 M/mcL (3.82-4.97); Red Cell Distribution Width 15.6 % (11.5-14.5); Segmented Neutrophils % 77.7 %; White Blood Count 10.6 K/mcL (4.3-11.1)
[2021-06-24 11:30] LABS: Platelet Count 67 K/mcL (140-400)
[2021-06-24] MEDS: Pantoprazole 40 MG in 0.9 % Sodium Chloride Mini Bag 100 ML IVC SCH ×3 (11:35→21:59)
[2021-06-24] MEDS ORDERED: 0.9 % Sodium Chloride 250 ML IVC PRN (11:41)
[2021-06-24] MEDS ORDERED: 0.9 % Sodium Chloride 1,000 ML PRIME SCH (11:45)
[2021-06-24] MEDS ORDERED: 0.9 % Sodium Chloride 500 ML ONE (12:36)
[2021-06-24] MEDS ORDERED: *HR* Heparin 5,000 UNIT/ML VIAL ONE (12:56)
[2021-06-24 15:30] LABS: INR 1.8; Prothrombin Time 20.7 Seconds (9.4-12.1)
[2021-06-24] MEDS ORDERED: SODIUM CHLORIDE/NAHCO3/KCL/PEG 4,000 ML SOLN.RECON PO ONE (17:00)
[2021-06-24 17:14] LABS: Hematocrit 24.8 % (35.3-44.9); Hemoglobin 8.6 g/dL (11.5-15.4)
[2021-06-24] MEDS: Ondansetron 4 MG/2 ML VIAL IVP PRN (18:35)
[2021-06-24] MEDS: rOPINIRole 0.25 MG TABLET PO SCH (20:57)
[2021-06-24 21:05] LABS: Hemoglobin 7.9 g/dL (11.5-15.4)
[2021-06-25 00:08] LABS: Basophils % 0.1 %; Eosinophils % 0.4 %; Hemoglobin 7.9 g/dL (11.5-15.4); White Blood Count 10.4 K/mcL (4.3-11.1)
[2021-06-25 00:10] LABS: Hematocrit 22.4 % (35.3-44.9); Immature Granulocytes % 1.3 % (0-4); Immature Platelets 3.8 % (1.1-6.1); Mean Corpuscular HGB Conc 35.3 g/dL (31.6-35.5); Mean Corpuscular Volume 87.8 fL (83.0-100.0); Mean Platelet Volume 11.7 fL (9.4-12.4); Monocytes # 1.2 K/mcL (0.0-1.3); Monocytes % 11.4 %; Red Blood Count 2.55 M/mcL (3.82-4.97); Red Cell Distribution Width 17.2 % (11.5-14.5); Segmented Neutrophils % 76.8 %
[2021-06-25 00:14] LABS: Platelet Count 71 K/mcL (140-400)
[2021-06-25] MEDS: Pantoprazole 40 MG in 0.9 % Sodium Chloride Mini Bag 100 ML IVC SCH ×4 (02:55→19:38)
[2021-06-25 04:54] LABS: Basophils % 0.1 %; Eosinophils % 0.3 %; Hematocrit 22.1 % (35.3-44.9)
[2021-06-25 04:56] LABS: Hemoglobin 7.7 g/dL (11.5-15.4); Immature Granulocytes % 0.6 % (0-4); Immature Platelets 4.7 % (1.1-6.1); Lymphocytes % 9.6 %; Mean Corpuscular HGB Conc 34.8 g/dL (31.6-35.5); Mean Corpuscular Hemoglobin 30.7 pg (28.0-33.3); Mean Platelet Volume 11.9 fL (9.4-12.4); Monocytes # 1.3 K/mcL (0.0-1.3); Monocytes % 12.1 %; Red Blood Count 2.51 M/mcL (3.82-4.97); Red Cell Distribution Width 17.3 % (11.5-14.5); Segmented Neutrophils % 77.3 %; White Blood Count 10.3 K/mcL (4.3-11.1)
[2021-06-25 04:59] LABS: Platelet Count 73 K/mcL (140-400)
[2021-06-25 05:08] LABS: Calcium 7.2 mg/dL (8.6-10.3); Potassium 3.9 mEq/L (3.5-5.1)
[2021-06-25] MEDS: Insulin LISPRO 300 UNITS/3 ML VIAL SUBQ SCH ×4 (07:39→20:29)
[2021-06-25] MEDS ORDERED: 0.9 % Sodium Chloride 250 ML IVC PRN (07:39)
[2021-06-25] MEDS: levETIRAcetam 250 MG TABLET PO SCH (08:40)
[2021-06-25] MEDS: Nystatin POWDER 30 GM BOTTLE TP SCH ×3 (08:41→21:50)
[2021-06-25] MEDS: Metoprolol XL (24 HR) Succ 25 MG TAB.ER.24H PO SCH (08:47)
[2021-06-25] MEDS ORDERED: Simethicone 40 MG/0.6 ML MLS PO PRN (09:13)
[2021-06-25] MEDS ORDERED: Metoclopramide 10 MG/2 ML VIAL ONE (09:14)
[2021-06-25] MEDS ORDERED: Metoclopramide 10 MG/2 ML VIAL IVP ONE (09:17)
[2021-06-25 09:26] LABS: Albumin 2.3 g/dL (3.5-5.7); Bilirubin,Direct 3.1 mg/dL (0.0-0.2); Bilirubin,Indirect 2.1 mg/dL (0.0-1.0); Bilirubin,Total 5.2 mg/dL (0.3-1.0); Globulin 2.2 g/dL (2.4-3.5); Total Protein 4.5 g/dL (6.4-8.9)
[2021-06-25] MEDS: Ringers Solution, Lactated 1,000 ML IVC SCH (14:28)
[2021-06-25 16:48] LABS: Adenovirus Not Detected (Not Detect); Bordetella Pertussis Not Detected (Not Detect); Chlamydophila pneumoniae Not Detected (Not Detect); Coronavirus 229E Not Detected (Not Detect); Coronavirus HKU1 Not Detected (Not Detect); Coronavirus NL63 Not Detected (Not Detect); Coronavirus OC43 Not Detected (Not Detect); Human Metapneumovirus Not Detected (Not Detect); Human Rhinovirus/Enterovirus Not Detected (Not Detect); Influenza A Subtype 2009 H1 Not Detected (Not Detect); Influenza B Not Detected (Not Detect); Mycoplasma pneumoniae Not Detected (Not Detect); Parainfluenza Virus 1 Not Detected (Not Detect); Parainfluenza Virus 2 Not Detected (Not Detect); Parainfluenza Virus 3 Not Detected (Not Detect); Parainfluenza Virus 4 Not Detected (Not Detect); Respiratory Syncytial Virus Not Detected (Not Detect); SARS-CoV-2 Not Detected (Not Detect)
[2021-06-25 17:46] LABS: Hematocrit 24.1 % (35.3-44.9); Hemoglobin 8.4 g/dL (11.5-15.4)
[2021-06-25] MEDS ORDERED: 0.9 % Sodium Chloride 500 ML IVC PRN (20:59)
[2021-06-25] MEDS ORDERED: Morphine Sulfate 2 MG/ML SYRINGE IVP ONE (21:08)
[2021-06-25] MEDS: Ondansetron 4 MG/2 ML VIAL IVP PRN (21:12)
[2021-06-25 21:41] LABS: Red Cell Distribution Width 17.5 % (11.5-14.5)
[2021-06-25 21:43] LABS: Basophils % 0.1 %; Eosinophils % 0.3 %; Hematocrit 22.7 % (35.3-44.9); Immature Granulocytes % 0.5 % (0-4); Immature Platelets 5.1 % (1.1-6.1); Lymphocytes # 0.7 K/mcL (0.6-4.6); Lymphocytes % 8.2 %; Mean Corpuscular HGB Conc 35.2 g/dL (31.6-35.5); Mean Corpuscular Hemoglobin 30.9 pg (28.0-33.3); Mean Corpuscular Volume 87.6 fL (83.0-100.0); Mean Platelet Volume 12.6 fL (9.4-12.4); Monocytes # 0.9 K/mcL (0.0-1.3); Monocytes % 10.6 %; Neutrophils # 7.1 K/mcL (1.6-8.9); Platelet Count 41 K/mcL (140-400); Red Blood Count 2.59 M/mcL (3.82-4.97); Segmented Neutrophils % 80.3 %; White Blood Count 8.8 K/mcL (4.3-11.1)
[2021-06-25] MEDS: rOPINIRole 0.25 MG TABLET PO SCH (21:51)
[2021-06-26 01:16] LABS: Hematocrit 23.2 % (35.3-44.9); Hemoglobin 8.1 g/dL (11.5-15.4)
[2021-06-26] MEDS: Pantoprazole 40 MG in 0.9 % Sodium Chloride Mini Bag 100 ML IVC SCH (03:32)
[2021-06-26] MEDS ORDERED: *HR* Midazolam HCl 5 MG/5 ML VIAL IVP ONE ×2 (04:39→11:53)
[2021-06-26 04:47] LABS: Hematocrit 22.4 % (35.3-44.9); Hemoglobin 7.7 g/dL (11.5-15.4); Mean Corpuscular HGB Conc 34.4 g/dL (31.6-35.5); Mean Corpuscular Hemoglobin 30.1 pg (28.0-33.3); Mean Corpuscular Volume 87.5 fL (83.0-100.0); Mean Platelet Volume 12.5 fL (9.4-12.4); Red Blood Count 2.56 M/mcL (3.82-4.97); Red Cell Distribution Width 17.9 % (11.5-14.5); White Blood Count 8.9 K/mcL (4.3-11.1)
[2021-06-26 05:04] LABS: Calcium 7.3 mg/dL (8.6-10.3); Potassium 3.9 mEq/L (3.5-5.1)
[2021-06-26] MEDS: Insulin LISPRO 300 UNITS/3 ML VIAL SUBQ SCH (07:33)
[2021-06-26] MEDS: Ringers Solution, Lactated 1,000 ML IVC SCH (07:33)
[2021-06-26] MEDS: Metoprolol XL (24 HR) Succ 25 MG TAB.ER.24H PO SCH (08:22)
[2021-06-26] MEDS: levETIRAcetam 250 MG TABLET PO SCH (08:22)
[2021-06-26] MEDS ORDERED: 0.9 % Sodium Chloride 250 ML IVC PRN (08:37)
[2021-06-26] MEDS ORDERED: *HR* Heparin 10,000 UNIT/10 ML VIAL IV PRN (08:37)
[2021-06-26] MEDS: Nystatin POWDER 30 GM BOTTLE TP SCH (08:59)
[2021-06-26 11:42] LABS: Hemoglobin 9.2 g/dL (11.5-15.4)
[2021-06-26 11:43] LABS: Basophils % 0.2 %; Eosinophils % 0.2 %; Hematocrit 26.2 % (35.3-44.9); Immature Granulocytes % 2.3 % (0-4); Immature Platelets 8.2 % (1.1-6.1); Lymphocytes # 1.2 K/mcL (0.6-4.6); Lymphocytes % 12.7 %; Mean Corpuscular HGB Conc 35.1 g/dL (31.6-35.5); Mean Corpuscular Hemoglobin 30.1 pg (28.0-33.3); Mean Corpuscular Volume 85.6 fL (83.0-100.0); Monocytes # 0.6 K/mcL (0.0-1.3); Monocytes % 6.5 %; Neutrophils # 7.3 K/mcL (1.6-8.9); Nucleated Red Blood Cells 2.6 /100 WBC (0); Red Blood Count 3.06 M/mcL (3.82-4.97); Red Cell Distribution Width 17.4 % (11.5-14.5); Segmented Neutrophils % 78.1 %; White Blood Count 9.4 K/mcL (4.3-11.1)
[2021-06-26 11:44] LABS: Platelet Count 41 K/mcL (140-400)
[2021-06-26 11:52] LABS: Activated Partial Thrombo Time 31.3 Seconds (26.0-36.0)
[2021-06-26] MEDS ORDERED: *HR* Adenosine 6 MG/2 ML VIAL IVP ONE ×4 (12:21→12:53)
[2021-06-26] MEDS ORDERED: Norepinephrine 4 MG/254 ML IV.SOLN IVC SCH ×2 (12:30→12:45)
[2021-06-26] MEDS ORDERED: Dexmedetomidine HCl 400 MCG/100 ML MLS IVC SCH ×3 (12:30→16:28)
[2021-06-26] MEDS ORDERED: Artificial Tears SOLN 15 ML BOTTLE BOTH EYES SCH (12:34)
[2021-06-26] MEDS ORDERED: Artificial Tears SOLN 15 ML BOTTLE BOTH EYES PRN (12:34)
[2021-06-26] MEDS ORDERED: *HR* LORazepam 2 MG/ML VIAL IVP PRN ×3 (12:34→16:28)
[2021-06-26] MEDS ORDERED: *HR* Midazolam HCl 2 MG/2 ML VIAL IV ONE ×2 (12:34→16:28)
[2021-06-26] MEDS ORDERED: FentaNYL (PF) 1,000 MCG/100 ML IV.SOLN IVC SCH ×2 (12:34→16:28)
[2021-06-26 12:44] LABS: Calcium 9.6 mg/dL (8.6-10.3); Magnesium 3.2 mg/dL (1.6-2.6); Phosphorous 3.3 mg/dL (2.7-4.5); Potassium 3.9 mEq/L (3.5-5.1); Troponin I 25.04 ng/mL (< 0.04)
[2021-06-26] MEDS ORDERED: Phenylephrine 50 MG in 0.9 % Sodium Chloride 250 ML IVC SCH (12:45)
[2021-06-26] MEDS ORDERED: Amiodarone Premix 150 MG/100 ML BAG IVPB ONE (13:04)
[2021-06-26] MEDS ORDERED: *HR* Metoprolol 5 MG/5 ML VIAL IVP ONE ×2 (13:05→13:08)
[2021-06-26 13:21] VITALS: TEMP 99.1
[2021-06-26] MEDS ORDERED: Atropine 1% Opth Drops 100 DROP/5 ML BOTTLE SL PRN (14:49)
[2021-06-26] MEDS ORDERED: *HR* FentaNYL (PF) 100 MCG/2 ML VIAL IVP PRN ×2 (14:49→16:28)
[2021-06-26 16:30] VITALS: BP 60/22; PULSE 53; O2SAT 85
[2021-06-26] MEDS ORDERED: Chlorhexidine Rinse 15 ML MOUTHWASH MM SCH (21:00)
[2021-06-26] MEDS ORDERED: Scopolamine Patch 1.5 MG PATCH.TD72 TD SCH (23:45)
[2021-06-26] MEDS: Atropine 1% Opth Drops 100 DROP/5 ML BOTTLE SL PRN (23:56)
[2021-06-27] MEDS: Atropine 1% Opth Drops 100 DROP/5 ML BOTTLE SL PRN (02:38)
== END 2021-06-27 04:40 | disposition expired | DRG 391 ==
LOC: EMEROOARM 10:04 → 2ANU 10:04 → SUATTDRO 13:36 → 2ANU 14:32 → SUATTDRO 06-20 19:30 → ICNU 06-26 12:25 → 2ANU 06-26 19:07
PROVIDERS: ADMIT Internal Medicine; ATTEND Internal Medicine